=== PATIENT | female | born 1930 | race Caucasian/White ===

== ENCOUNTER 2018-02-07 15:03 | Emergency (ER) | payer MEDICARE, BC ==
[2018-02-07 15:42] VITALS: RESP 18
[2018-02-07 16:11] LABS: Basophils % (A) 1 %; Eosinophils # (A) 0.1 k/uL (0-0.7); Eosinophils % (A) 3 %; HCT 36.1 % (34.0-46.0); HGB 12.1 gm/dL (11.4-16.0); Lymphocytes # (A) 0.7 k/uL (1.0-4.8); Lymphocytes % (A) 19 %; MCH 30.3 pg (25.0-35.0); MCHC 33.5 g/dL (31.0-37.0); MCV 90.4 fL (80.0-100.0); Mean Platelet Volume 9.4; Monocytes # (A) 0.2 k/uL (0-1.0); Monocytes % (A) 7 %; Neutrophils # (A) 2.6 k/uL (1.3-7.7); Neutrophils % (A) 69 %; Platelet Count 135 k/uL (150-450); RDW 13.8 % (11.5-15.5); WBC 3.7 k/uL (3.8-10.6)
[2018-02-07 16:21] LABS: Albumin 3.4 g/dL (3.5-5.0); Total Bilirubin 0.5 mg/dL (0.2-1.3); Total Protein 5.9 g/dL (6.3-8.2)
--- NOTE | 2018-02-07 16:27 | XR ---
EXAMINATION TYPE: XR KUB DATE OF EXAM: 02/07/2018 4:13 PM CLINICAL HISTORY: Abdominal pain TECHNIQUE: Single supine KUB image of the abdomen is obtained. COMPARISON: 11/03/2015. FINDINGS: Scattered gas is seen in non-distended small bowel loops. Gas and fecal material is seen in non-distended colon. Moderate amount retained colonic stool is noted. Atherosclerosis is seen of the abdominal aorta and its branches. There is no visceromegaly, pneumoperitoneum, or abnormal calcifica tion appreciated. Trace pleural effusions are seen at the lung bases. Overlying soft tissue density i s seen in the mid abdomen partially securing visualization. There is generalized osseous demineraliza tion, dextroscoliotic curvature of the lumbar spine, extensive degenerative changes of the visualized spine, and right hemipelvic benign-appearing similar calcifications to exam of 11/03/2015. IMPRESSION: Moderate amount retained colonic stool in an overall nonobstructive bowel gas pattern.
--- NOTE | 2018-02-07 17:56 | ED ---
Abdominal Pain HPI - General Chief Complaint: Abdominal Pain Stated Complaint: bowel obstruction Time Seen by Provider: 02/07/18 17:39 Source: patient, family, RN notes reviewed, old records reviewed Mode of arrival: wheelchair Limitations: no limitations - History of Present Illness Initial Comments: 87-year-old female presents emergency Department with a chief complaint of lower abdominal pain for the past few weeks. She reports that she has the pain over the suprapubic region radiating to the right and left lower quadrants. Patient states that she has had no fever or chills. She reports that she's been having difficulty with bowel movements. She did have a small bowel movement yesterday. Patient states that she's been taking some MiraLAX for the past few days to help her have bowel movements. No fevers or chills. No nausea or vomiting. She reports that she has chronic back pain related to multiple falls. No recent falls. Patient states she has no other symptoms at this time.Patient denies any recent fever, chills, shortness of breath, chest pain, back pain, nausea vomiting, numbness or tingling, dysuria or hematuria, diarrhea, headaches or visual changes, or any other current symptoms - Related Data Home Medications Medication Instructions Recorded Confirmed Ergocalciferol [Vitamin D2 50,000 unit PO FR 11/03/15 02/07/18 (DRISDOL)] Levothyroxine Sodium [Synthroid] 88 mcg PO DAILY 11/03/15 02/07/18 HYDROcodone/APAP 5-325MG [[place] 1 tab PO Q6HR PRN 02/07/18 02/07/18 5-325] Ibuprofen [Advil] 400 mg PO HS 02/07/18 02/07/18 Previous Rx's Medication Instructions Recorded Bisacodyl [Dulcolax] 5 mg PO DAILY #20 tablet.dr 02/07/18 Nitrofurantoin Monohyd/M-Cryst 100 mg PO Q12HR #14 cap 02/07/18 [Macrobid] Allergies Allergy/AdvReac Type Severity Reaction Status Date / Time Penicillins Allergy Unknown Verified 02/07/18 18:15 Review of Systems ROS Statement: Those systems with pertinent positive or pertinent negative responses have been documented in the HPI. ROS Other: All systems not noted in ROS Statement are negative. Past Medical History Past Medical History: Hypertension, Memory Impairment, Osteoarthritis (OA), Thyroid Disorder Additional Past Medical History / Comment(s): CONSTIPATION History of Any Multi-Drug Resistant Organisms: None Reported Past Surgical History: Breast Surgery Additional Past Surgical History / Comment(s): LUMPECTOMY 30 YEARS AGO, sinus surgery Past Anesthesia/Blood Transfusion Reactions: No Reported Reaction Past Psychological History: Anxiety Smoking Status: Former smoker Past Alcohol Use History: None Reported Past Drug Use History: None Reported - Past Family History Brother(s) Family Medical History: Cancer Father Family Medical History: Myocardial Infarction ([place]) Mother Family Medical History: Myocardial Infarction ([place]) Sister(s) Family Medical History: CVA/TIA, Myocardial Infarction ([place]) General Exam - General Exam Comments Initial Comments: 87-year-old female. Alert. No acute distress. She does appear somewhat thin and frail. Limitations: no limitations General appearance: alert, in no apparent distress Head exam: Present: atraumatic, normocephalic, normal inspection Eye exam: Present: normal appearance, PERRL, EOMI. Absent: scleral icterus, conjunctival injection, periorbital swelling ENT exam: Present: normal exam, mucous membranes moist Neck exam: Present: normal inspection. Absent: tenderness, meningismus, lymphadenopathy Respiratory exam: Present: normal lung sounds bilaterally. Absent: respiratory distress, wheezes, rales, rhonchi, stridor Cardiovascular Exam: Present: regular rate, normal rhythm, normal heart sounds. Absent: systolic murmur, diastolic murmur, rubs, gallop, clicks GI/Abdominal exam: Present: soft, normal bowel sounds. Absent: distended, tenderness, guarding, rebound, rigid Extremities exam: Present: normal inspection, full ROM, normal capillary refill. Absent: tenderness, pedal edema, joint swelling, calf tenderness Back exam: Present: normal inspection Neurological exam: Present: alert, oriented X3, CN II-XII intact Psychiatric exam: Present: normal affect, normal mood Course Vital Signs 02/07/18 15:38 Temperature 98.1 F Pulse Rate 103 H Respiratory 18 Rate Blood Pressure 174/88 O2 Sat by Pulse 99 Oximetry - Reevaluation(s) Reevaluation #1: 02/07/18 20:16 Patient is reevaluated after enema. She does have some relief. She denies as of suprapubic tenderness. Currently pending UA. Medical Decision Making - Medical Decision Making This patient's [id number] female presents with multiple weeks of lower back abdominal pain. She is not had good stools. X-rays show moderate amount of retained colonic stool and overall nonobjective bowel gas pattern. No vomiting. Patient's labwork was reviewed and unremarkable this time. Stable hemoglobin. White blood cell count was 3.7 on the lower side. She's had low white blood cell counts throughout her past history. Chemistry panels are normal. Currently pending urinalysis. We'll give patient a fair back enema and magnesium citrate. Patient urinalysis is very thick. The lab was unable to run a sample. We will do a urine culture. The superficial tenderness up the patient on Macrobid. Pending urine culture. Discussed that she also needs take daily stool softeners. We'll prescribe her for this as well. Patient agrees. All questions answered her primary's were discussed. Follow-up with PCP. - Lab Data Result diagrams: 02/07/18 16:00 02/07/18 16:00 Lab Results 02/07/18 02/07/18 Range/Units 16:00 16:00 WBC 3.7 L (3.8-10.6) k/uL RBC 4.00 (3.80-5.40) m/uL Hgb 12.1 (11.4-16.0) gm/dL Hct 36.1 (34.0-46.0) % MCV 90.4 (80.0-100.0) fL MCH 30.3 (25.0-35.0) pg MCHC 33.5 (31.0-37.0) g/dL RDW 13.8 (11.5-15.5) % Plt Count 135 L (150-450) k/uL Neutrophils % 69 % Lymphocytes % 19 % Monocytes % 7 % Eosinophils % 3 % Basophils % 1 % Neutrophils # 2.6 (1.3-7.7) k/uL Lymphocytes # 0.7 L (1.0-4.8) k/uL Monocytes # 0.2 (0-1.0) k/uL Eosinophils # 0.1 (0-0.7) k/uL Basophils # 0.0 (0-0.2) k/uL Sodium 142 (137-145) mmol/L Potassium 4.0 (3.5-5.1) mmol/L Chloride 106 (98-107) mmol/L Carbon Dioxide 26 (22-30) mmol/L Anion Gap 10 mmol/L BUN 19 H (7-17) mg/dL Creatinine 0.79 (0.52-1.04) mg/dL Est GFR (CKD-EPI)AfAm 77 (>60 ml/min/1.73 sqM) Est GFR (CKD-EPI)NonAf 67 (>60 ml/min/1.73 sqM) Glucose 125 H (74-99) mg/dL Calcium 9.0 (8.4-10.2) mg/dL Total Bilirubin 0.5 (0.2-1.3) mg/dL AST 15 (14-36) U/L ALT 8 L (9-52) U/L Alkaline Phosphatase 70 (38-126) U/L Total Protein 5.9 L (6.3-8.2) g/dL Albumin 3.4 L (3.5-5.0) g/dL Amylase 39 (30-110) U/L Lipase 39 (23-300) U/L - Radiology Data Radiology results: report reviewed KUB shows moderate amount of retained colonic stool and overall nonobstructive bowel gas pattern. Disposition Clinical Impression: UTI (urinary tract infection), Constipation Disposition: HOME SELF-CARE Condition: Good Instructions: Constipation (ED), Urinary Tract Infection in Women (ED) Additional Instructions: is to increase her fluid intake. Patient should take antibiotics as prescribed. Use daily stool softener. Return to emergency department if any alarming signs or symptoms occur. Prescriptions: Bisacodyl [Dulcolax] 5 mg PO DAILY #20 tablet. Nitrofurantoin Monohyd/M-Cryst [Macrobid] 100 mg PO Q12HR #14 cap Is patient prescribed a controlled substance at d/c from ED?: No If prescribed controlled substance>3 days was MAPS reviewed?: No When asked, does pt state using other controlled substances?: No Referrals: Cate Miner MD [Primary Care Provider] - 1-2 days Time of Disposition: 20:18
[2018-02-07] MEDS ORDERED: NITROFURANTOIN MONOHYD/M-CRYST 100 MG CAP PO STA (20:19)
[2018-02-07 20:55] VITALS: BP 173/103; PULSE 104; TEMP 97
== END 2018-02-07 20:55 | disposition home or self-care (01) ==
LOC: EC 15:03
DX: N39.0 Urinary tract infection, site not specified (principal); K59.00 Constipation, unspecified; E07.9 Disorder of thyroid, unspecified; M19.90 Unspecified osteoarthritis, unspecified site; Z87.891 Personal history of nicotine dependence; Z79.1 Long term (current) use of non-steroidal anti-inflammatories (NSAID); Z79.899 Other long term (current) drug therapy; Z88.0 Allergy status to penicillin
CPT/HCPCS: 36415; 74018; 80053; 82150; 83690; 85025; 87077; 87086; 87186; 99284

== ENCOUNTER 2018-03-02 08:12 | Inpatient (IN) | payer MEDICARE, BC ==
--- NOTE | 2018-03-02 08:42 | ED ---
Fall HPI - General Chief Complaint: Fall Stated Complaint: Fall Time Seen by Provider: 03/02/18 08:20 Source: patient, family, EMS, RN notes reviewed Mode of arrival: EMS Limitations: altered mental status, physical limitation - History of Present Illness Initial Comments: This an 87-year-old female presents emergency department via EMS chief complaint of fall. Patient to falls this morning. Patient has multiple complaints from his falls. She primarily complains of left hip, left leg pain. She also complains of right tib-fib pain, neck discomfort. Patient reported to EMS that she did not have any neck pain. Patient denies any paresthesias. Denies any chest pain, shortness breath, nausea vomiting diarrhea constipation. These were mechanical falls service no syncopal episodes. Patient hadn't no prior surgery on her left hip but she states that she had a fracture of her femur in which she was casted for. - Related Data Home Medications Medication Instructions Recorded Confirmed Ergocalciferol [Vitamin D2 50,000 unit PO FR 11/03/15 03/02/18 (AMBAR)] Levothyroxine Sodium [Synthroid] 88 mcg PO DAILY 11/03/15 03/02/18 HYDROcodone/APAP 5-325MG [[place] 1 tab PO Q6HR PRN 02/07/18 03/02/18 5-325] Ibuprofen [Advil] 400 mg PO HS 02/07/18 03/02/18 Previous Rx's Medication Instructions Recorded Bisacodyl [Dulcolax] 5 mg PO DAILY #20 tablet. 02/07/18 Allergies Allergy/AdvReac Type Severity Reaction Status Date / Time Penicillins Allergy Unknown Verified 03/02/18 08:53 Sulfa (Sulfonamide Allergy Unknown Verified 03/02/18 08:55 Antibiotics) Review of Systems ROS Statement: Those systems with pertinent positive or pertinent negative responses have been documented in the HPI. ROS Other: All systems not noted in ROS Statement are negative. Past Medical History Past Medical History: Dementia, Hypertension, Memory Impairment, Osteoarthritis (OA), Thyroid Disorder Additional Past Medical History / Comment(s): CONSTIPATION; hip fracture 15 years ago per son History of Any Multi-Drug Resistant Organisms: None Reported Past Surgical History: Breast Surgery Additional Past Surgical History / Comment(s): LUMPECTOMY 30 YEARS AGO, sinus surgery Past Anesthesia/Blood Transfusion Reactions: No Reported Reaction Past Psychological History: Anxiety Smoking Status: Former smoker Past Alcohol Use History: None Reported Past Drug Use History: None Reported - Past Family History Brother(s) Family Medical History: Cancer Father Family Medical History: Myocardial Infarction ([place]) Mother Family Medical History: Myocardial Infarction ([place]) Sister(s) Family Medical History: CVA/TIA, Myocardial Infarction ([place]) General Exam Limitations: altered mental status, physical limitation General appearance: alert, in no apparent distress Head exam: Present: atraumatic, normocephalic, normal inspection Eye exam: Present: normal appearance, PERRL, EOMI. Absent: scleral icterus, conjunctival injection, periorbital swelling Neck exam: Present: normal inspection, tenderness (Mild paraspinal there is no step-off deformity no vertebral tenderness), full ROM. Absent: meningismus, lymphadenopathy Respiratory exam: Present: normal lung sounds bilaterally. Absent: respiratory distress, wheezes, rales, rhonchi, stridor Cardiovascular Exam: Present: regular rate, normal rhythm, normal heart sounds. Absent: systolic murmur, diastolic murmur, rubs, gallop, clicks Extremities exam: Present: other (Tenderness with palpation to left hip, left femur region there is some internal rotation and shortening noted there is tenderness the right tib-fib lower extremities neurovascularly intact) Back exam: Present: full ROM. Absent: tenderness Neurological exam: Present: alert, CN II-XII intact, reflexes normal. Absent: oriented X3 (Patient has a history dementia), motor sensory deficit Skin exam: Present: warm, dry, intact, normal color. Absent: rash Course Vital Signs 03/02/18 08:15 Temperature 98.1 F Pulse Rate 83 Respiratory 22 Rate Blood Pressure 186/89 O2 Sat by Pulse 94 L Oximetry Disposition Clinical Impression: Fall, Closed left hip fracture Disposition: ADMITTED IP TO THIS HOSP Condition: Stable Referrals: Cate Miner MD [Primary Care Provider] - 1-2 days
--- NOTE | 2018-03-02 09:12 | CT ---
EXAMINATION TYPE: CT brain joseph pickering con DATE OF EXAM: 03/02/2018 COMPARISON: NONE HISTORY: Fall * [address] DLP: [address] of the brain was performed. The ventricles, basal cisterns and sulci overlying the cerebral convexities demonstrate moderate enla rgement. There is no evidence for intracranial hemorrhage or sulcal effacement. There is decreased attenuatio n about the periventricular white matter and deep white matter of both cerebral hemispheres, compatib le with chronic small vessel ischemia. No mass effects are seen. If symptoms persist consider MRI. Osseous calvarium is intact. IMPRESSION: 1. Age related atrophic and chronic small vessel ischemic change without acute intracranial process seen at this time. CT Cervical Spine: Unenhanced CT of the cervical spine was performed with bone and soft tissue window settings submitted . Coronal and sagittal reconstruction is obtained. There is normal alignment and prevertebral soft tissues. No evidence for acute cervical fracture . Scattered degenerative disc disease and spondylosis. Biapical scarring. Moderate bilateral pleural effusions are noted extending of the lung apices. IMPRESSION: 1. No evidence for acute fracture or subluxation of the cervical spine.
[2018-03-02] MEDS ORDERED: ONDANSETRON 4 MG/2 ML VIAL IVP STA (09:18)
[2018-03-02] MEDS ORDERED: NALOXONE 0.4 MG/ML 1 ML VIAL IV PRN ×2 (10:51→17:21)
[2018-03-02] MEDS ORDERED: ONDANSETRON 4 MG/2 ML VIAL IVP PRN (10:51)
[2018-03-02] MEDS ORDERED: MORPHINE SULFATE 2 MG/ML SYRINGE IV PRN (10:51)
[2018-03-02] MEDS ORDERED: HYDROcodone/APAP 5-325MG 1 EACH TAB PO PRN ×2 (10:51→16:50)
--- NOTE | 2018-03-02 10:52 | XR ---
EXAMINATION TYPE: XR chest 1V DATE OF EXAM: 03/02/2018 COMPARISON: 11/07/2015 INDICATION: Pain TECHNIQUE: Single frontal view of the chest is obtained. Patient is rotated to the right FINDINGS: The heart size is normal. The pulmonary vasculature is normal. Small bilateral pleural fluid collections are present. IMPRESSION: 1. Bilateral fluid collections.
--- NOTE | 2018-03-02 10:55 | XR ---
EXAMINATION TYPE: XR femur LT DATE OF EXAM: 03/02/2018 COMPARISON: None HISTORY: Pain TECHNIQUE: Two-view distal left femur FINDINGS: Structures are osteoporotic. There is degenerative joint changes at the knee. No displaced fractures are evident within the [id number]. The proximal portion of the femur is out of the field -of-view. This is evaluated separately on the hip images. Please see left hip images same date. IMPRESSION: 1. Distal femur appears intact. No additional fractures are evident.
--- NOTE | 2018-03-02 10:56 | XR ---
EXAMINATION TYPE: XR Hip LT and AP Pelvis DATE OF EXAM: 03/02/2018 COMPARISON: NONE HISTORY: Pain TECHNIQUE: AP pelvis and 2 views left hip FINDINGS: There is a distal femoral neck fracture within the left hip. There is angulation of the fra cture fragments. The femoral head articulates with the acetabulum. Proximal femoral fracture is not o therwise identified. IMPRESSION: 1. Distal left femoral neck fracture with angulation of the fracture fragments.
--- NOTE | 2018-03-02 11:00 | XR ---
EXAMINATION TYPE: XR tibia fibula RT DATE OF EXAM: 03/02/2018 COMPARISON: NONE HISTORY: Pain TECHNIQUE: 2 views right tibia and fibula FINDINGS: Degenerative joint changes appear moderately advanced at the knee. Structures appear osteop enic. Degenerative changes are at the ankle. An acute fracture within the [id number] is not identi fied. IMPRESSION: 1. No acute osseous abnormality right tibia and fibula. 2. Degenerative changes especially at the knee. 3. See left hip dictation same date.
[2018-03-02] MEDS ORDERED: METOCLOPRAMIDE 5 MG/ML 2 ML VIAL IVP STA (11:40)
[2018-03-02] MEDS: DIAZEPAM 5 MG/ML 2 ML INJ IVP STA ×2 (12:12→12:25)
--- NOTE | 2018-03-02 12:24 | XR ---
EXAMINATION TYPE: XR Hip Limited LT DATE OF EXAM: 03/02/2018 COMPARISON: NONE HISTORY: Post reduction TECHNIQUE: Single AP view left hip FINDINGS: There is a distal femoral neck fracture. There is partial reduction of the fracture now wit h close orientation of the femoral neck in relation to the femur. This is improved from comparison. IMPRESSION: 1. Partial reduction of the left femoral neck fracture.
--- NOTE | 2018-03-02 12:43 | P.HPOR ---
History of Present Illness H&P Date: 03/02/18 Chief Complaint: left hip fracture this is an 87-year-old female admitted to [facility] on 2017 after falling and sustaining injury to her left hip. Patient has history of dementia and lives with her son. She reportedly was getting up to use the bathroom and fell. On exam and x-ray in the emergency department she is found to have a low basilar neck fracture of the left hip.she is admitted to our service for surgical intervention and care. Past Medical History Past Medical History: Dementia, Hypertension, Memory Impairment, Osteoarthritis (OA), Thyroid Disorder Additional Past Medical History / Comment(s): CONSTIPATION; hip fracture 15 years ago per son History of Any Multi-Drug Resistant Organisms: None Reported Past Surgical History: Breast Surgery Additional Past Surgical History / Comment(s): LUMPECTOMY 30 YEARS AGO, sinus surgery Past Anesthesia/Blood Transfusion Reactions: No Reported Reaction Past Psychological History: Anxiety Smoking Status: Former smoker Past Alcohol Use History: None Reported Past Drug Use History: None Reported - Past Family History Brother(s) Family Medical History: Cancer Father Family Medical History: Myocardial Infarction ([place]) Mother Family Medical History: Myocardial Infarction ([place]) Sister(s) Family Medical History: CVA/TIA, Myocardial Infarction ([place]) Medications and Allergies Home Medications Medication Instructions Recorded Confirmed Type Ergocalciferol [Vitamin D2 50,000 unit PO FR 11/03/15 03/02/18 History (DRISDOL)] Levothyroxine Sodium [Synthroid] 88 mcg PO DAILY 11/03/15 03/02/18 History Bisacodyl [Dulcolax] 5 mg PO DAILY #20 tablet.dr 02/07/18 03/02/18 Rx HYDROcodone/APAP 5-325MG [[place] 1 tab PO Q6HR PRN 02/07/18 03/02/18 History 5-325] Ibuprofen [Advil] 400 mg PO HS 02/07/18 03/02/18 History Allergies Allergy/AdvReac Type Severity Reaction Status Date / Time Penicillins Allergy Unknown Verified 03/02/18 08:53 Sulfa (Sulfonamide Allergy Unknown Verified 03/02/18 08:55 Antibiotics) Physical Examination This is a and 87-year-old female with dementiain no acute distress. She is alert but confused. Exam of the lower extremities reveals shortening and abrasions to internal rotation of the left hip. After the patient is medicated I am unable to get her left leg out to length. She is able to wiggle toes. Pedal pulses +1/4. She does have +1 pitting edema to the lower legs. The remainder of her musculoskeletal exam is unremarkable. Results x-rays of the pelvis and left hip reveal a low basilar neck fracture with possible greater trochanteric involvement. Assessment and Plan (1) Dementia Current Visit: Yes Status: Acute Code(s): F03.90 - UNSPECIFIED DEMENTIA WITHOUT BEHAVIORAL DISTURBANCE SNOMED Code(s): 22448777 (2) Closed left hip fracture Current Visit: Yes Status: Acute Code(s): S72.002A - FRACTURE OF UNSP PART OF NECK OF LEFT FEMUR, INIT SNOMED Code(s): 004027253 (3) Fall Current Visit: Yes Status: Acute Code(s): W19.XXXA - UNSPECIFIED FALL, INITIAL ENCOUNTER SNOMED Code(s): 7604984 Plan: The clinical and x-ray findings are discussed the patient and nursing staff. She is placed in 10 pounds of [place] traction for the purpose of obtaining a better x-ray. We will keep her in Faith's traction until surgery. It is recommended she undergo closed reduction with insertion of intertrochanteric nail left hip. We are planning or for today if she is cleared medically.
[2018-03-02] MEDS ORDERED: QUEtiapine 25 MG TAB PO PRN (13:08)
[2018-03-02 13:19] LABS: Basophils % (A) 0 %; Eosinophils % (A) 0 %; HCT 32.4 % (34.0-46.0); HGB 10.6 gm/dL (11.4-16.0); Lymphocytes # (A) 0.4 k/uL (1.0-4.8); Lymphocytes % (A) 6 %; MCH 30.3 pg (25.0-35.0); MCHC 32.5 g/dL (31.0-37.0); MCV 93.2 fL (80.0-100.0); Mean Platelet Volume 9.4; Monocytes # (A) 0.3 k/uL (0-1.0); Monocytes % (A) 5 %; Neutrophils # (A) 6.1 k/uL (1.3-7.7); Neutrophils % (A) 88 %; Platelet Count 156 k/uL (150-450); RBC 3.48 m/uL (3.80-5.40); RDW 14.1 % (11.5-15.5); WBC 6.9 k/uL (3.8-10.6)
[2018-03-02 13:21] LABS: Appearance,Urine Cloudy (Clear); Bilirubin,Urine Negative (Negative); Blood,Urine Small (Negative); Color,Urine Yellow; Glucose,Urine (UA) Negative (Negative); Ketones,Urine 1+ (Negative); Leukocyte Esterase,Urine Large (Negative); Nitrite,Urine Negative (Negative); Protein,Urine 1+ (Negative); RBC,Urine 18 /hpf (0-5); Squamous Epithelial Cell,Urine 4 /hpf (0-4); Urobilinogen,Urine <2.0 mg/dL (<2.0); WBC,Urine 133 /hpf (0-5)
[2018-03-02 13:38] LABS: ALT 25 U/L (9-52); AST 19 U/L (14-36); Albumin 3.2 g/dL (3.5-5.0); Alkaline Phosphatase 59 U/L (38-126); Anion Gap 10 mmol/L; Blood Urea Nitrogen 19 mg/dL (7-17); Calcium 8.5 mg/dL (8.4-10.2); Carbon Dioxide 24 mmol/L (22-30); Chloride 108 mmol/L (98-107); Glucose 134 mg/dL (74-99); Potassium 3.9 mmol/L (3.5-5.1); Sodium 142 mmol/L (137-145); Total Bilirubin 0.5 mg/dL (0.2-1.3); Total Protein 5.5 g/dL (6.3-8.2)
[2018-03-02 13:43] LABS: INR 1.1 (<1.2); Prothrombin Time 11.1 sec (9.0-12.0)
[2018-03-02 13:56] LABS: Partial Thromboplastin Time 21.4 sec (22.0-30.0)
[2018-03-02] MEDS ORDERED: LACTATED RINGERS 1,000 ML IV ONE (14:45)
[2018-03-02] MEDS ORDERED: PHENYLEPHRINE-0.9% NACL SYG 1 MG/10 ML SYRINGE ONE (15:00)
[2018-03-02] MEDS ORDERED: KETAMINE 10 MG/ML 20 ML VIAL ONE (15:00)
[2018-03-02] MEDS ORDERED: MIDAZOLAM 2 MG/2 ML VIAL ONE (15:00)
[2018-03-02] MEDS ORDERED: SODIUM CHLORIDE 0.9% 50 ML with ceFAZolin 1,000 MG IV ONE ×2 (15:42)
[2018-03-02] MEDS ORDERED: CLINDAMYCIN 600 MG in SODIUM CHLORIDE 0.9% 1,000 ML IRRIGATION ONE (16:13)
--- NOTE | 2018-03-02 17:02 | P.OP ---
Date of Procedure: 03/02/18 Procedure(s) Performed: PREOPERATIVE DIAGNOSIS: Left hip intertrochanteric/basicervical femoral neck fracture. POSTOPERATIVE DIAGNOSIS: Left hip intertrochanteric/basicervical femoral neck fracture. OPERATION: Left hip intertrochanteric fracture closed reduction and intramedullary nailing using Synthes IT nail. MULTIMEDIA INSTRUCTIONAL DESIGNER: None ANESTHESIA: Spinal ESTIMATED BLOOD LOSS: 50 mL. COMPLICATIONS: None OPERATIVE FINDINGS: See dictation INDICATIONS: Josefina is an 87-year-old frail female with a history of left intertrochanteric/easy cervical femoral neck fracture. The patient presents to the operating room today for closed reduction and intramedullary nailing. I discussed the risks of surgery in detail as being inclusive of but not limited to: Bleeding, infection, scarring, discomfort, blood vessel and/or nerve damage , need for further surgery, malunion, nonunion, gait disturbance including persistent or permanent limp, limb length inequality, arthritis, hardware failure, blood clot, pulmonary embolism, , and other risks. The consent form has been signed. PROCEDURE: After appropriate consent was obtained, the patient was taken to the operating room and placed in supine position. [Spinal] anesthetic was administered and after confirmation of adequate anesthesia, the patient was carefully placed in the supine position on the operating room table in the fracture table. The patient was placed up against a well-padded peroneal post. Care was taken to make sure about that all pressure points were adequately padded. The affected leg was placed in boot traction and the unaffected leg was placed in a well leg rayo. Using gentle longitudinal distraction as well as adduction and internal rotation, the fracture was reduced as assessed by AP and lateral C-arm imaging. Once a satisfactory reduction had been obtained, the thigh was prepped and draped in the usual aseptic fashion using ChloraPrep. Ioban drape was used for the case and the patient received intravenous antibiotics prior to incision. Timeout was called, confirming patient identity, side, procedure, and administration of antibiotics. The incision was then created with a #10 blade just proximal to the greater trochanter laterally. It was carried down through skin into the subcutaneous tissues and through fascia. Hemostasis was obtained using electrocautery. The tip of the greater trochanter was palpated and a guide pin was placed at the tip and directed into the femoral shaft as assessed with C-arm imaging. Once optimal pin position had been obtained, a 17 mm reamer was used over the guide pin to create a path for the IT nail. IT nail selected was assembled to the insertion jig on the back table and bushings were checked for accuracy. The nail was then inserted using gentle mallet taps until it was fully deployed. The amount of rotation of the implant was assessed based on the amount of anteversion of the femoral neck. This was rotated to match the patient's femoral neck anteversion and the helical blade guide was placed through the insertion jig and through an incision on the lateral side of the thigh more distal than the first. Once this guide was placed against the lateral cortex of the femur, a guide pin was drilled into the central region of the femoral head and neck as based on AP and lateral C-arm imaging. Once optimal pin position had been obtained, the guidewire was measured and appropriately sized helical blade was selected. The path for the helical blade was prepared using a tapered reamer. The helical blade was then inserted using gentle mallet taps along the guidewire until it was fully deployed. There was no displacement of the fracture during this step. The anti-rotation screw was locked down and the insertion apparatus for the helical blade was removed. The guide pin was then removed. Traction was then removed from the leg and the distal interlock was placed through the jig using standard technique. Finally, the insertion jig for the nail was removed and final C-arm images were taken and saved in both AP and lateral planes. The final x-rays showed satisfactory positioning of the implant and good reduction of the fracture. The top of the nail was plugged with a small quantity of bone wax and the incisions were then thoroughly irrigated with normal saline. Final hemostasis was obtained using electrocautery and closure of the fascia was performed using 0-Vicryl suture. 2-0 Vicryl suture was used in the subcutaneous tissues and sher were used for the skin. Sterile dressing was then applied and the patient was carefully removed from the fracture table frame and placed onto the stretcher. The patient tolerated the procedure well. There were no complications and less than 50 cc of blood loss. The patient was then subsequently transferred to recovery room in stable condition. Sponge and needle counts were correct.
[2018-03-02] MEDS ORDERED: HYDROmorphone 0.5 MG/0.5 ML SYRINGE IVP PRN ×4 (17:21→17:25)
[2018-03-02] MEDS ORDERED: MAGNESIUM HYDROXIDE 2,400 MG/10 ML CUP PO PRN (17:21)
--- NOTE | 2018-03-02 17:34 | P.CONS ---
History of Present Illness - Reason for Consult Preoperative clearance - History of Present Illness 87-year-old female admitted after a mechanical fall and fracture of the left hip. I was consulted for preoperative clearance. Patient appears to have moderate dementia etiology of dementia is probably senile or vascular. Patient functionality is poor and less than 4 mets. Patient is dependent and on ADLs and IADLs. Patient was getting up from the bed fell and sustained a fracture I do not have an EKG available which was ordered patient denied any chest pain fever chills shortness of breath. Patient denied any previous history of coronary disease myocardial infarction in the past does not have any history of congestive heart failure no murmur and cardiac exam. Doesn't smoke thin built female. Discussed regarding this and benefits of surgery as a surgery improves her functionality significantly even though she is moderate risk for surgery at recommended that patient should go for surgery. Avoid opiate analgesia about benzos. Barbiturates anticollagen medications during hospitalization and can use as needed antipsychotic medications for agitation episodes which are expected during this hospitalization. Discontinued all opiates for pain. Review of Systems REVIEW OF SYSTEMS: CONSTITUTIONAL: No fever, no malaise, no fatigue. HEENT: No recent visual problems or hearing problems. Denied any sore throat. CARDIOVASCULAR: No chest pain, orthopnea, PND, no palpitations, no syncope. PULMONARY: No shortness of breath, no cough, no hemoptysis. GASTROINTESTINAL: No diarrhea, no nausea, no vomiting, no abdominal pain. Normoactive bowel sounds. NEUROLOGICAL: No headaches, no weakness, no numbness. HEMATOLOGICAL: Denies any bleeding or petechiae. GENITOURINARY: Denies any burning micturition, frequency, or urgency. MUSCULOSKELETAL/RHEUMATOLOGICAL: Denies any joint pain, swelling, or any muscle pain. ENDOCRINE: Denies any polyuria or polydipsia. Although patient is poor historian The rest of the 14-point review of systems is negative. Past Medical History Past Medical History: Dementia, Hypertension, Memory Impairment, Osteoarthritis (OA), Thyroid Disorder Additional Past Medical History / Comment(s): Memory impairment, athritis multiple joints, past L lower leg fracture with casting, hypothyroid, chronic constipation, UTIs, gait dysfunction, falls, protein calorie malnutrition, bilateral retinal bleeds-limited vision. History of Any Multi-Drug Resistant Organisms: None Reported Past Surgical History: Breast Surgery Additional Past Surgical History / Comment(s): Benign breast lumpectomy ( laterality unknown), sinus surgery, bilateral cataract removals/lens implants. Past Anesthesia/Blood Transfusion Reactions: No Reported Reaction Smoking Status: Former smoker - Past Family History Brother(s) Family Medical History: Cancer Father Family Medical History: Myocardial Infarction ([place]) Mother Family Medical History: Myocardial Infarction ([place]) Sister(s) Family Medical History: CVA/TIA, Myocardial Infarction ([place]) Medications and Allergies Home Medications Medication Instructions Recorded Confirmed Type Ergocalciferol [Vitamin D2 50,000 unit PO FR 11/03/15 03/02/18 History (DRISDOL)] Levothyroxine Sodium [Synthroid] 88 mcg PO DAILY 11/03/15 03/02/18 History Bisacodyl [Dulcolax] 5 mg PO DAILY #20 tablet.dr 02/07/18 03/02/18 Rx HYDROcodone/APAP 5-325MG [Manderson 1 tab PO Q6HR PRN 02/07/18 03/02/18 History 5-325] Ibuprofen [Advil] 400 mg PO HS 02/07/18 03/02/18 History Allergies Allergy/AdvReac Type Severity Reaction Status Date / Time Penicillins Allergy Unknown Verified 03/02/18 08:53 Sulfa (Sulfonamide Allergy Unknown Verified 03/02/18 08:55 Antibiotics) Physical Exam Vitals: Vital Signs Temp Pulse Pulse Pulse Resp BP BP 03/02/18 17:27 96 16 134/63 03/02/18 17:12 104 H 18 135/63 03/02/18 16:57 87 16 138/69 03/02/18 16:42 92 16 138/59 03/02/18 16:26 97.3 F L 102 H 16 131/75 03/02/18 14:49 96.9 F L 98 16 169/87 03/02/18 14:13 110 H 03/02/18 13:34 110 H 16 149/88 03/02/18 13:14 93 16 173/74 03/02/18 13:01 96 16 178/84 03/02/18 12:42 90 16 167/78 03/02/18 12:27 95 16 129/69 03/02/18 12:23 77 16 116/62 03/02/18 12:17 86 14 204/72 03/02/18 08:15 98.1 F 83 22 186/89 Pulse Ox 03/02/18 17:27 98 03/02/18 17:12 92 L 03/02/18 16:57 92 L 03/02/18 16:42 96 03/02/18 16:26 95 03/02/18 14:49 85 L 03/02/18 14:13 03/02/18 13:34 95 03/02/18 13:14 97 03/02/18 13:01 97 03/02/18 12:42 97 03/02/18 12:27 2 L 03/02/18 12:23 95 03/02/18 12:17 94 L 03/02/18 08:15 94 L Intake and Output 03/02/18 03/02/18 03/02/18 06:59 14:59 22:59 Intake Total 651 Output Total 150 Balance 501 Intake: IV 651 Output: Urine 100 Estimated Blood Loss 50 Other: Voiding Method Indwelling Catheter Weight 47.627 kg PHYSICAL EXAMINATION: GENERAL: The patient is alert and oriented x1-2, not in any acute distress. Thin built cachectic female HEENT: Pupils are round and equally reacting to light. EOMI. No scleral icterus. No conjunctival pallor. Normocephalic, atraumatic. No pharyngeal erythema. No thyromegaly. CARDIOVASCULAR: S1 and S2 present. No murmurs, rubs, or gallops. PULMONARY: Chest is clear to auscultation, no wheezing or crackles. ABDOMEN: Soft, nontender, nondistended, normoactive bowel sounds. No palpable organomegaly. MUSCULOSKELETAL: Deferred to orthopedic surgery EXTREMITIES: No cyanosis, clubbing, or pedal edema. NEUROLOGICAL: Gross neurological examination did not reveal any focal deficits. SKIN: No rashes. Results CBC & Chem 7: 03/02/18 12:35 03/02/18 12:35 Labs: Abnormal Lab Results - Last 24 Hours (Table) 03/02/18 03/02/18 03/02/18 Range/Units 12:35 12:35 12:35 RBC 3.48 L (3.80-5.40) m/uL Hgb 10.6 L (11.4-16.0) gm/dL Hct 32.4 L (34.0-46.0) % Lymphocytes # 0.4 L (1.0-4.8) k/uL APTT (22.0-30.0) sec Chloride 108 H (98-107) mmol/L BUN 19 H (7-17) mg/dL Glucose 134 H (74-99) mg/dL Total Protein 5.5 L (6.3-8.2) g/dL Albumin 3.2 L (3.5-5.0) g/dL Urine Appearance Cloudy H (Clear) Urine Protein 1+ H (Negative) Urine Ketones 1+ H (Negative) Urine Blood Small H (Negative) Ur Leukocyte Esterase Large H (Negative) Urine RBC 18 H (0-5) /hpf Urine WBC 133 H (0-5) /hpf 03/02/18 Range/Units 12:35 RBC (3.80-5.40) m/uL Hgb (11.4-16.0) gm/dL Hct (34.0-46.0) % Lymphocytes # (1.0-4.8) k/uL APTT 21.4 L (22.0-30.0) sec Chloride (98-107) mmol/L BUN (7-17) mg/dL Glucose (74-99) mg/dL Total Protein (6.3-8.2) g/dL Albumin (3.5-5.0) g/dL Urine Appearance (Clear) Urine Protein (Negative) Urine Ketones (Negative) Urine Blood (Negative) Ur Leukocyte Esterase (Negative) Urine RBC (0-5) /hpf Urine WBC (0-5) /hpf Assessment and Plan Plan: -Preoperative clearance, left hip arthroplasty: Patient is moderate risk for surgery and this and benefits were discussed with the family members. Please refer to the dictation as mentioned above. -Hypertension will monitor blood pressure hold off any anti-happens medications -Hypothyroidism continue levothyroxine -Pain management: Recommend to avoid opiates, benzos a pains, barbiturates, anticollagen medications can use Toradol with kidney function monitoring. Patient does use ibuprofen. -DVT prophylaxis: As per primary service
[2018-03-02] MEDS: LACTATED RINGERS 1,000 ML IV SCH (17:57)
[2018-03-02 18:14] LABS: Basophils % (A) 0 %; Eosinophils % (A) 0 %; HCT 31.8 % (34.0-46.0); HGB 10.1 gm/dL (11.4-16.0); Hypochromasia Slight; Lymphocytes # (A) 0.3 k/uL (1.0-4.8); Lymphocytes % (A) 4 %; MCH 30.2 pg (25.0-35.0); MCHC 31.7 g/dL (31.0-37.0); MCV 95.2 fL (80.0-100.0); Mean Platelet Volume 9.9; Monocytes # (A) 0.3 k/uL (0-1.0); Monocytes % (A) 4 %; Neutrophils # (A) 7.1 k/uL (1.3-7.7); Neutrophils % (A) 91 %; Platelet Count 137 k/uL (150-450); RBC 3.35 m/uL (3.80-5.40); RDW 13.9 % (11.5-15.5); WBC 7.9 k/uL (3.8-10.6)
--- NOTE | 2018-03-02 20:25 | XR ---
Fluoroscopy INDICATION: Pain FINDINGS: Fluoroscopy time: 52 seconds. Images obtained: 3. IMPRESSIONS: 1. Documentation of fluoroscopy.
[2018-03-02] MEDS ORDERED: FAMOTIDINE 20 MG TAB PO SCH (21:00)
[2018-03-02] MEDS: SENNOSIDES-DOCUSATE SODIUM 1 EACH TAB PO SCH (22:32)
[2018-03-03] MEDS: ceFAZolin IN SWFI 2 GM/20 ML SYRINGE IVP SCH ×2 (00:23→09:50)
[2018-03-03] MEDS ORDERED: HYDROmorphone 0.5 MG/0.5 ML SYRINGE ONE (04:15)
[2018-03-03] MEDS: KETOROLAC 30 MG/ML 1 ML VIAL IVP PRN ×2 (08:18→14:31)
--- NOTE | 2018-03-03 08:48 | P.PN ---
Subjective Progress Note Date: 03/03/18 Principal diagnosis: IT Fracture Left Hip This is a 87 y/o female POD#1 s/p closed reduction and insertion of IT nail left femur. Pain is well controlled. She has a history of dementia and is confused at baseline. She has no complaints at this time and is in no acute distress. Objective - Vital Signs Vital signs: Vital Signs Temp 98.3 F 03/03/18 08:13 Pulse 104 H 03/03/18 00:09 Resp 12 03/03/18 08:13 BP 120/71 03/03/18 08:13 Pulse Ox 94 L 03/03/18 08:13 Intake & Output 03/02/18 03/03/18 03/03/18 18:59 06:59 18:59 Intake Total 651 1500 Output Total 150 200 Balance 501 1300 Weight 47.627 kg Intake: IV 651 Intake, IV Titration 1300 Amount Lactated Ringers 1,000 ml 1300 @ 100 mls/hr IV .Q10H [facility] Rx#:[id number] Oral 200 Output: Urine 100 200 Estimated Blood Loss 50 Other: Voiding Method Indwelling Catheter Indwelling Catheter - Exam General: Lying in bed comfortably, no acute distress, confused at baseline. Extremities: Surgical dressing on lateral left hip intact, clean, no signs of active bleeding. No calf swelling or discoloration bilaterally. DP and PT pulses +2 bilaterally. Neuro: Patient follows commands and is able to move all four extremities. Sensation intact in all four extremities. - Labs CBC & Chem 7: 03/02/18 17:59 03/02/18 12:35 Labs: Abnormal Lab Results - Last 24 Hours (Table) 03/02/18 03/02/18 03/02/18 Range/Units 12:35 12:35 12:35 RBC 3.48 L (3.80-5.40) m/uL Hgb 10.6 L (11.4-16.0) gm/dL Hct 32.4 L (34.0-46.0) % Plt Count (150-450) k/uL Lymphocytes # 0.4 L (1.0-4.8) k/uL APTT (22.0-30.0) sec Chloride 108 H (98-107) mmol/L BUN 19 H (7-17) mg/dL Glucose 134 H (74-99) mg/dL Total Protein 5.5 L (6.3-8.2) g/dL Albumin 3.2 L (3.5-5.0) g/dL Urine Appearance Cloudy H (Clear) Urine Protein 1+ H (Negative) Urine Ketones 1+ H (Negative) Urine Blood Small H (Negative) Ur Leukocyte Esterase Large H (Negative) Urine RBC 18 H (0-5) /hpf Urine WBC 133 H (0-5) /hpf 03/02/18 03/02/18 Range/Units 12:35 17:59 RBC 3.35 L (3.80-5.40) m/uL Hgb 10.1 L (11.4-16.0) gm/dL Hct 31.8 L (34.0-46.0) % Plt Count 137 L (150-450) k/uL Lymphocytes # 0.3 L (1.0-4.8) k/uL APTT 21.4 L (22.0-30.0) sec Chloride (98-107) mmol/L BUN (7-17) mg/dL Glucose (74-99) mg/dL Total Protein (6.3-8.2) g/dL Albumin (3.5-5.0) g/dL Urine Appearance (Clear) Urine Protein (Negative) Urine Ketones (Negative) Urine Blood (Negative) Ur Leukocyte Esterase (Negative) Urine RBC (0-5) /hpf Urine WBC (0-5) /hpf Assessment and Plan Assessment: 87 y/o female POD#1 s/p closed reduction IT nail insertion left hip IT fracture. Closed left hip IT fracture Acute left hip pain Dementia Hypertension Hypothyroidism (1) Dementia Current Visit: Yes Status: Chronic Code(s): F03.90 - UNSPECIFIED DEMENTIA WITHOUT BEHAVIORAL DISTURBANCE SNOMED Code(s): 34728555 (2) Closed left hip fracture Current Visit: Yes Status: Acute Code(s): S72.002A - FRACTURE OF UNSP PART OF NECK OF LEFT FEMUR, INIT SNOMED Code(s): 572661028 (3) Fall Current Visit: Yes Status: Acute Code(s): W19.XXXA - UNSPECIFIED FALL, INITIAL ENCOUNTER SNOMED Code(s): 4929614 Plan: Continue current pain regimen Monitor for signs of incision bleeding and infection Plan to discharge to inpatient rehab and PT Time with Patient: Less than 30
[2018-03-03 08:50] LABS: Anion Gap 8 mmol/L; Blood Urea Nitrogen 20 mg/dL (7-17); Calcium 8.2 mg/dL (8.4-10.2); Carbon Dioxide 22 mmol/L (22-30); Chloride 111 mmol/L (98-107); Glucose 109 mg/dL (74-99); Potassium 4.1 mmol/L (3.5-5.1); Sodium 141 mmol/L (137-145)
[2018-03-03] MEDS ORDERED: HYDROmorphone 2 MG TAB PO PRN ×2 (09:23)
[2018-03-03] MEDS: FAMOTIDINE 20 MG TAB PO SCH (09:50)
[2018-03-03] MEDS: BISACODYL 5 MG TABLET.DR PO SCH (09:50)
[2018-03-03] MEDS: LEVOTHYROXINE 88 MCG TAB PO SCH (09:50)
[2018-03-03] MEDS: LACTATED RINGERS 1,000 ML IV SCH ×2 (10:33→14:32)
[2018-03-03 11:01] VITALS: BMI 16.9
--- NOTE | 2018-03-03 13:17 | CDI ---
Last Revision, September 2017 Documentation Clarification Form Date: 03/03/2018 12:14:00 PM From: Gabby FontanezWalshNAMRAAT, CCDS Admit Date: 03/02/2018 11:09:00 AM Patient Name: Josefina Hawkins Visit Number: [id number] Discharge Date: ATTENTION: The Clinical Documentation Specialists (CDI) and [facility] Coding Staff appreciate your assistance in clarifying documentation. Please respond to the clarification below the line at the bottom and electronically sign. The CDI & [facility] Coding staff will review the response and follow-up if needed. Please note: Queries are made part of the Legal Health Record. If you have any questions, please contact the author of this message via ITS. Dr. Toby Fisher: Malnutrition has been documented in your 03/02 medical management consultation as "History of... protein calorie malnutrition". History/Risk Factors: Dementia, Hypertension, OA, Osteoarthritis multiple joints. Clinical Indicators: BMI: 16.9 Labs: Total protein 5.5, Albumin 3.2 Nutritional Assessment: 81% of ideal body weight, Underweight likely due to advanced dementia, meeting 75% of daily diet goal, Weak muscle tone, poor muscle strength. Treatment: Closed reduction with IM nailing of left femur fracture, IV Zofran, IV Ms, IV Narcan, IV Zofran, IV Reglan, IV Valium, IV Toradol, IV Lactated Ringers, IV Dilaudid. In your professional opinion, can you please clarify if these findings signify one of the following conditions? Mild Protein-Calorie Malnutrition Moderate Protein-Calorie Malnutrition Severe Protein-Calorie Malnutrition Other condition, please specify Unable to determine Please continue to document in your progress notes and discharge summary in order to capture severity of illness and risk of mortality. Include clinical findings that support your diagnosis. MTDD
--- NOTE | 2018-03-03 14:01 | P.PN ---
Subjective 87-year-old successfully underwent a left hip arthroplasty. Patient is still having pain and tachycardic secondary to that patient was started on opiates as hit her pain is not well controlled. Patient appears to have tolerated those opiates because of which I didn't make any changes today. Patient is comparing of severe pain in the surgical site areas Objective - Vital Signs Vital signs: Vital Signs Temp 98.3 F 03/03/18 08:13 Pulse 103 H 03/03/18 08:15 Resp 14 03/03/18 08:15 BP 120/71 03/03/18 08:13 Pulse Ox 94 L 03/03/18 08:13 Intake & Output 03/02/18 03/03/18 03/03/18 18:59 06:59 18:59 Intake Total 651 1500 700 Output Total 150 200 Balance 501 1300 700 Weight 47.627 kg 47.627 kg Intake: IV 651 Intake, IV Titration 1300 700 Amount Lactated Ringers 1,000 ml 1300 700 @ 100 mls/hr IV .Q10H [facility] Rx#:[id number] Oral 200 Output: Urine 100 200 Estimated Blood Loss 50 Other: Voiding Method Indwelling Catheter Indwelling Catheter Indwelling Catheter - Exam PHYSICAL EXAMINATION: GENERAL: The patient is alert and oriented x1-2, not in any acute distress. Thin built cachectic female HEENT: Pupils are round and equally reacting to light. EOMI. No scleral icterus. No conjunctival pallor. Normocephalic, atraumatic. No pharyngeal erythema. No thyromegaly. CARDIOVASCULAR: S1 and S2 present. No murmurs, rubs, or gallops. PULMONARY: Chest is clear to auscultation, no wheezing or crackles. ABDOMEN: Soft, nontender, nondistended, normoactive bowel sounds. No palpable organomegaly. MUSCULOSKELETAL: Deferred to orthopedic surgery EXTREMITIES: No cyanosis, clubbing, or pedal edema. NEUROLOGICAL: Gross neurological examination did not reveal any focal deficits. SKIN: No rashes. - Labs CBC & Chem 7: 03/02/18 17:59 03/03/18 07:50 Labs: Abnormal Lab Results - Last 24 Hours (Table) 03/02/18 03/02/18 03/03/18 Range/Units 12:35 17:59 07:50 RBC 3.35 L (3.80-5.40) m/uL Hgb 10.1 L (11.4-16.0) gm/dL Hct 31.8 L (34.0-46.0) % Plt Count 137 L (150-450) k/uL Lymphocytes # 0.3 L (1.0-4.8) k/uL APTT 21.4 L (22.0-30.0) sec Chloride 111 H (98-107) mmol/L BUN 20 H (7-17) mg/dL Glucose 109 H (74-99) mg/dL Calcium 8.2 L (8.4-10.2) mg/dL Assessment and Plan Plan: -Status post left hip arthroplasty: DVT prophylaxis per primary service and pain management is being managed by primary service as well. -Hypertension will monitor blood pressure hold off any hypertensive medications -Hypothyroidism continue levothyroxine -Pain management: Recommend to avoid benzos , barbiturates, anticollagen medications can use Toradol with kidney function monitoring. Patient does use ibuprofen. [id number] protein calorie malnutrition -DVT prophylaxis: As per primary service
[2018-03-03] MEDS: hydrOXYzine PAMOATE 25 MG CAP PO PRN (19:46)
[2018-03-03] MEDS: SENNOSIDES-DOCUSATE SODIUM 1 EACH TAB PO SCH (19:47)
[2018-03-03] MEDS: HYDROcodone/APAP 5-325MG 1 EACH TAB PO PRN (19:47)
[2018-03-04] MEDS: LACTATED RINGERS 1,000 ML IV SCH ×3 (07:43→19:33)
[2018-03-04 08:22] LABS: Basophils % (A) 0 %; Eosinophils # (A) 0.1 k/uL (0-0.7); Eosinophils % (A) 2 %; Lymphocytes # (A) 0.5 k/uL (1.0-4.8); Lymphocytes % (A) 10 %; MCH 30.4 pg (25.0-35.0); MCHC 32.2 g/dL (31.0-37.0); MCV 94.5 fL (80.0-100.0); Mean Platelet Volume 9.8; Monocytes # (A) 0.3 k/uL (0-1.0); Monocytes % (A) 6 %; Neutrophils # (A) 4.3 k/uL (1.3-7.7); Neutrophils % (A) 81 %; Platelet Count 111 k/uL (150-450); RBC 2.54 m/uL (3.80-5.40); RDW 14.3 % (11.5-15.5); WBC 5.3 k/uL (3.8-10.6)
[2018-03-04 08:24] LABS: HGB 7.7 gm/dL (11.4-16.0)
--- NOTE | 2018-03-04 08:47 | P.PN ---
Subjective Progress Note Date: 03/04/18 Principal diagnosis: IT Fracture Left Hip This is a 87 y/o female POD#2 s/p closed reduction and insertion of IT nail left femur. Pain is well controlled. She has a history of dementia and is confused at baseline. She has no complaints at this time and is in no acute distress. Objective - Vital Signs Vital signs: Vital Signs Temp 98.7 F 03/04/18 07:12 Pulse 85 03/04/18 07:12 Resp 14 03/04/18 07:12 BP 131/64 03/04/18 07:12 Pulse Ox 95 03/04/18 07:12 Intake & Output 03/03/18 03/04/18 03/04/18 18:59 06:59 18:59 Intake Total 700 1300 Output Total 200 410 Balance 500 890 Weight 47.627 kg Intake: Intake, IV Titration 700 600 Amount Lactated Ringers 1,000 ml 700 600 @ 100 mls/hr IV .Q10H [facility] Rx#:[id number] Oral 700 Output: Urine 200 410 Other: Voiding Method Indwelling Catheter Indwelling Catheter Indwelling Catheter - Exam This is a pleasant 87-year-old female in no acute distress. She does have some confusion this morning. Exam of the lower extremities reveals that her dressing is clean, dry and intact. She has full foot and ankle motion without difficulty or pain. Pedal pulse is +2/4. Capillary refills less than 3 seconds. Neurovascular status to the lower extremity is intact. - Labs CBC & Chem 7: 03/04/18 06:37 03/03/18 07:50 Labs: Abnormal Lab Results - Last 24 Hours (Table) 03/03/18 03/04/18 Range/Units 07:50 06:37 RBC 2.54 L (3.80-5.40) m/uL Hgb 7.7 L D (11.4-16.0) gm/dL Hct 24.0 L (34.0-46.0) % Plt Count 111 L (150-450) k/uL Lymphocytes # 0.5 L (1.0-4.8) k/uL Chloride 111 H (98-107) mmol/L BUN 20 H (7-17) mg/dL Glucose 109 H (74-99) mg/dL Calcium 8.2 L (8.4-10.2) mg/dL Assessment and Plan Assessment: The clinical findings are discussed the patient. We'll continue care and plan discharged to inpatient rehab Wednesday. (1) Dementia Current Visit: Yes Status: Chronic Code(s): F03.90 - UNSPECIFIED DEMENTIA WITHOUT BEHAVIORAL DISTURBANCE SNOMED Code(s): 76280663 (2) Closed left hip fracture Current Visit: Yes Status: Acute Code(s): S72.002A - FRACTURE OF UNSP PART OF NECK OF LEFT FEMUR, INIT SNOMED Code(s): 399203443 (3) Fall Current Visit: Yes Status: Acute Code(s): W19.XXXA - UNSPECIFIED FALL, INITIAL ENCOUNTER SNOMED Code(s): 8057854
[2018-03-04] MEDS: LEVOTHYROXINE 88 MCG TAB PO SCH (08:49)
[2018-03-04] MEDS: FAMOTIDINE 20 MG TAB PO SCH (08:50)
[2018-03-04] MEDS: BISACODYL 5 MG TABLET.DR PO SCH (08:50)
[2018-03-04] MEDS: hydrOXYzine PAMOATE 25 MG CAP PO PRN ×2 (09:06→19:21)
[2018-03-04] MEDS: HYDROcodone/APAP 5-325MG 1 EACH TAB PO PRN ×2 (09:07→19:21)
[2018-03-04] MEDS: KETOROLAC 30 MG/ML 1 ML VIAL IVP PRN (14:35)
--- NOTE | 2018-03-04 16:55 | P.PN ---
Subjective 87-year-old successfully underwent a left hip arthroplasty. Patient is still having pain and tachycardic secondary to that patient was started on opiates as hit her pain is not well controlled. Patient appears to have tolerated those opiates because of which I didn't make any changes today. Patient is comparing of severe pain in the surgical site areas 03/04/2018 Patient is still complaining of pain. Decreased urine output will closely monitored but will continue with the Toradol because of her continued pain, patient is getting confused occasionally may be related to pain on opiate analgesia. There is no other alternative except to continue this opiate analogies a patient is on Seroquel for agitation episodes. Objective - Vital Signs Vital signs: Vital Signs Temp 98.4 F 03/04/18 15:18 Pulse 109 H 03/04/18 15:18 Resp 18 03/04/18 15:18 BP 133/72 03/04/18 15:18 Pulse Ox 92 L 03/04/18 15:18 Intake & Output 03/03/18 03/04/18 03/04/18 18:59 06:59 18:59 Intake Total 700 1300 140 Output Total 200 410 150 Balance 500 890 -10 Weight 47.627 kg Intake: Intake, IV Titration 700 600 Amount Lactated Ringers 1,000 ml 700 600 @ 100 mls/hr IV .Q10H [facility] Rx#:[id number] Oral 700 140 Output: Urine 200 410 150 Other: Voiding Method Indwelling Catheter Indwelling Catheter Indwelling Catheter - Exam PHYSICAL EXAMINATION: GENERAL: The patient is alert and oriented x1-2, not in any acute distress. Thin built cachectic female HEENT: Pupils are round and equally reacting to light. EOMI. No scleral icterus. No conjunctival pallor. Normocephalic, atraumatic. No pharyngeal erythema. No thyromegaly. CARDIOVASCULAR: S1 and S2 present. No murmurs, rubs, or gallops. PULMONARY: Chest is clear to auscultation, no wheezing or crackles. ABDOMEN: Soft, nontender, nondistended, normoactive bowel sounds. No palpable organomegaly. MUSCULOSKELETAL: Deferred to orthopedic surgery EXTREMITIES: No cyanosis, clubbing, or pedal edema. NEUROLOGICAL: Gross neurological examination did not reveal any focal deficits. SKIN: No rashes. - Labs CBC & Chem 7: 03/04/18 06:37 03/03/18 07:50 Labs: Abnormal Lab Results - Last 24 Hours (Table) 03/04/18 Range/Units 06:37 RBC 2.54 L (3.80-5.40) m/uL Hgb 7.7 L D (11.4-16.0) gm/dL Hct 24.0 L (34.0-46.0) % Plt Count 111 L (150-450) k/uL Lymphocytes # 0.5 L (1.0-4.8) k/uL Assessment and Plan Plan: -Status post left hip arthroplasty: DVT prophylaxis per primary service and pain management is being managed by primary service as well. -Hypertension will monitor blood pressure hold off any hypertensive medications -Hypothyroidism continue levothyroxine -Pain management: Recommend to avoid benzos , barbiturates, anticollagen medications can use Toradol with kidney function monitoring. Patient does use ibuprofen. [id number] protein calorie malnutrition -DVT prophylaxis: As per primary service
[2018-03-04] MEDS: SENNOSIDES-DOCUSATE SODIUM 1 EACH TAB PO SCH (19:34)
[2018-03-05] MEDS: LACTATED RINGERS 1,000 ML IV SCH (04:10)
[2018-03-05] MEDS: HYDROcodone/APAP 5-325MG 1 EACH TAB PO PRN ×3 (05:31→20:05)
[2018-03-05 08:15] LABS: Anion Gap 10 mmol/L; Blood Urea Nitrogen 30 mg/dL (7-17); Calcium 8.7 mg/dL (8.4-10.2); Carbon Dioxide 25 mmol/L (22-30); Chloride 107 mmol/L (98-107); Glucose 104 mg/dL (74-99); Potassium 4.2 mmol/L (3.5-5.1); Sodium 142 mmol/L (137-145)
[2018-03-05] MEDS: hydrOXYzine PAMOATE 25 MG CAP PO PRN (08:21)
[2018-03-05] MEDS: FAMOTIDINE 20 MG TAB PO SCH (08:21)
[2018-03-05] MEDS: LEVOTHYROXINE 88 MCG TAB PO SCH (08:23)
[2018-03-05] MEDS: BISACODYL 5 MG TABLET.DR PO SCH (08:23)
--- NOTE | 2018-03-05 12:07 | P.PN ---
Subjective Progress Note Date: 03/05/18 Principal diagnosis: Left IT fx Patient is seen at bedside this morning. She is postop day #3 from closed reduction internal fixation with IT nail for left hip fracture. She has pain at the surgical site as expected but denies any new complaints. She denies numbness, tingling or calf pain. Review of systems is negative for fever, chills, chest pain, shortness of breath or other Objective - Vital Signs Vital signs: Vital Signs Temp 97.4 F L 03/05/18 08:13 Pulse 93 03/05/18 08:13 Resp 20 03/05/18 08:13 BP 160/80 03/05/18 08:13 Pulse Ox 91 L 03/05/18 08:13 Intake & Output 03/04/18 03/05/18 03/05/18 18:59 06:59 18:59 Intake Total 260 100 Output Total 225 300 Balance 35 -200 Intake: Oral 260 Other 100 Output: Urine 225 300 Other: Voiding Method Indwelling Catheter Indwelling Catheter Indwelling Catheter - Exam Inspection reveals a benign surgical wound. There is no active bleeding or drainage. Neurovascular status is intact throughout the lower extremity with motor and sensation fully intact. Calf is soft and nontender. 2+ dorsalis pedis pulse and less than 2 second cap refill is present - Constitutional General appearance: Present: no acute distress - Labs CBC & Chem 7: 03/04/18 06:37 03/05/18 06:19 Labs: Abnormal Lab Results - Last 24 Hours (Table) 03/05/18 Range/Units 06:19 BUN 30 H (7-17) mg/dL Glucose 104 H (74-99) mg/dL Assessment and Plan (1) Closed left hip fracture Narrative/Plan: She will continue with routine postop orthopedic protocol including pain management, wound care, physical therapy, DVT prophylaxis and medical management. Expect that she will transfer to rehab in next few days Current Visit: Yes Status: Acute Code(s): S72.002A - FRACTURE OF UNSP PART OF NECK OF LEFT FEMUR, INIT SNOMED Code(s): 774628397 Time with Patient: Less than 30
--- NOTE | 2018-03-05 12:13 | XR ---
EXAMINATION TYPE: XR chest 1V DATE OF EXAM: 03/05/2018 COMPARISON: 03/02/2018 HISTORY: Shortness of breath FINDINGS: Noted is pulmonary venous congestion with scattered infiltrates. There is also cardiomegaly and small effusions. IMPRESSION: Findings compatible with congestive failure. Infiltrates of other etiology are not excluded. Clinical correlation and progress studies are recommended.
[2018-03-05] MEDS: ASPIRIN 325 MG TAB PO SCH ×2 (12:54→20:05)
[2018-03-05] MEDS ORDERED: FUROSEMIDE 10 MG/ML 4 ML VIAL IV STA (13:40)
--- NOTE | 2018-03-05 13:48 | P.PN ---
Subjective 87-year-old successfully underwent a left hip arthroplasty. Patient is still having pain and tachycardic secondary to that patient was started on opiates as hit her pain is not well controlled. Patient appears to have tolerated those opiates because of which I didn't make any changes today. Patient is comparing of severe pain in the surgical site areas 03/04/2018 Patient is still complaining of pain. Decreased urine output will closely monitored but will continue with the Toradol because of her continued pain, patient is getting confused occasionally may be related to pain on opiate analgesia. There is no other alternative except to continue this opiate analogies a patient is on Seroquel for agitation episodes. 03/05/2018 Patient has quite a bit confused, Vistaril was discontinued as nursing staff to avoid opiates as well for pain. Patient saturations are low no significant crackles on exam because of her low saturations after the chest x-ray which did show pulmonary edema will give a dose of Lasix obtain echo cardiac exam. Patient is a poor historian, patient is not in respiratory distress Objective - Vital Signs Vital signs: Vital Signs Temp 97.4 F L 03/05/18 08:13 Pulse 93 03/05/18 08:13 Resp 20 03/05/18 08:13 BP 160/80 03/05/18 08:13 Pulse Ox 91 L 03/05/18 08:13 Intake & Output 03/04/18 03/05/18 03/05/18 18:59 06:59 18:59 Intake Total 260 100 Output Total 225 300 Balance 35 -200 Intake: Oral 260 Other 100 Output: Urine 225 300 Other: Voiding Method Indwelling Catheter Indwelling Catheter Indwelling Catheter - Exam PHYSICAL EXAMINATION: GENERAL: The patient is alert and oriented x1-2, not in any acute distress. Thin built cachectic female HEENT: Pupils are round and equally reacting to light. EOMI. No scleral icterus. No conjunctival pallor. Normocephalic, atraumatic. No pharyngeal erythema. No thyromegaly. CARDIOVASCULAR: S1 and S2 present. No murmurs, rubs, or gallops. PULMONARY: Chest is clear to auscultation, no wheezing or crackles. ABDOMEN: Soft, nontender, nondistended, normoactive bowel sounds. No palpable organomegaly. MUSCULOSKELETAL: Deferred to orthopedic surgery EXTREMITIES: No cyanosis, clubbing, or pedal edema. NEUROLOGICAL: Gross neurological examination did not reveal any focal deficits. SKIN: No rashes. - Labs CBC & Chem 7: 03/04/18 06:37 03/05/18 06:19 Labs: Abnormal Lab Results - Last 24 Hours (Table) 03/05/18 Range/Units 06:19 BUN 30 H (7-17) mg/dL Glucose 104 H (74-99) mg/dL Assessment and Plan Plan: -Status post left hip arthroplasty: DVT prophylaxis per primary service and pain management is being managed by primary service as well. -Hypertension will monitor blood pressure hold off any hypertensive medications -Hypothyroidism continue levothyroxine -Pain management: Recommend to avoid benzos , barbiturates, anticollagen medications can use Toradol with kidney function monitoring. Patient does use ibuprofen. [id number] protein calorie malnutrition -Pulmonary edema unsure of the ejection fraction obtaining echocardiogram will give a dose of Lasix IV fluids were discontinued -DVT prophylaxis: As per primary service
--- NOTE | 2018-03-05 17:52 | US ---
EXAMINATION TYPE: US venous doppler duplex LE LT DATE OF EXAM: 03/05/2018 4:02 PM COMPARISON: NONE CLINICAL HISTORY: r/o dvt. recent left hip sx, patient is confused and in a lot of left hip pain SIDE PERFORMED: Left TECHNIQUE: The lower extremity deep venous system is examined utilizing real time linear array sonog eduard with graded compression, doppler sonography and color-flow sonography. VESSELS IMAGED: External Iliac Vein (EIV) Common Femoral Vein Deep Femoral Vein Greater Saphenous Vein * Femoral Vein Popliteal Vein Small Saphenous Vein * Proximal Calf Veins (* superficial vessels) FINDINGS: No appearance of DVT but there were limitations to exam. Elderly patient unable to hold st ill and left leg was turned inward, limiting scanning approach. Unable to visualize left FV at mid an d dist level with color off. Was able to obtain good compression of other vessels and doppler flow. Grayscale, color doppler, spectral doppler imaging performed of the deep veins of the lower extremiti es. There is normal flow, compressibility, vascular waveforms. IMPRESSION: NEGATIVE FOR LEFT LOWER EXTREMITY.
[2018-03-05] MEDS: SENNOSIDES-DOCUSATE SODIUM 1 EACH TAB PO SCH (20:05)
[2018-03-06] MEDS: HYDROmorphone 2 MG TAB PO PRN ×2 (01:28→23:10)
[2018-03-06] MEDS: ASPIRIN 325 MG TAB PO SCH ×2 (11:03→21:16)
[2018-03-06] MEDS: FAMOTIDINE 20 MG TAB PO SCH (11:03)
[2018-03-06] MEDS: LEVOTHYROXINE 88 MCG TAB PO SCH (11:03)
[2018-03-06] MEDS: BISACODYL 5 MG TABLET.DR PO SCH (11:11)
[2018-03-06] MEDS ORDERED: FUROSEMIDE 10 MG/ML 4 ML VIAL IV STA (11:55)
[2018-03-06] MEDS: ACETAMINOPHEN TAB 325 MG TAB PO PRN ×2 (12:25→18:20)
[2018-03-06] MEDS: METOPROLOL TARTRATE 25 MG TAB PO SCH ×2 (12:27→21:16)
--- NOTE | 2018-03-06 12:38 | P.PN ---
Subjective Progress Note Date: 03/06/18 Principal diagnosis: Left IT fx Patient is seen at bedside this morning. She is postop day #4 from closed reduction internal fixation with IT nail for left hip fracture. She has pain at the surgical site as expected but denies any new complaints. She denies numbness, tingling or calf pain. Review of systems is negative for fever, chills, chest pain, shortness of breath or other Objective - Vital Signs Vital signs: Vital Signs Temp 97.1 F L 03/06/18 08:57 Pulse 100 03/06/18 12:27 Resp 16 03/06/18 08:57 BP 177/74 03/06/18 12:27 Pulse Ox 95 03/06/18 08:57 Intake & Output 03/05/18 03/06/18 03/06/18 18:59 06:59 18:59 Intake Total 1040 Output Total 1150 350 Balance -1150 690 Intake: Oral 1040 Output: Urine 1150 350 Uretheral (Goss) 200 Other: Voiding Method Indwelling Catheter Bedside Commode Diaper # Voids 2 - Exam Inspection reveals a benign surgical wound. There is no active bleeding or drainage. Neurovascular status is intact throughout the lower extremity with motor and sensation fully intact. Calf is soft and nontender. 2+ dorsalis pedis pulse and less than 2 second cap refill is present - Constitutional General appearance: Present: no acute distress - Labs CBC & Chem 7: 03/04/18 06:37 03/05/18 06:19 Assessment and Plan (1) Closed left hip fracture Narrative/Plan: She will continue with routine postop orthopedic protocol including pain management, wound care, physical therapy, DVT prophylaxis and medical management. Expect that she will transfer to rehab in next few days Current Visit: Yes Status: Acute Priority: Medium Code(s): S72.002A - FRACTURE OF UNSP PART OF NECK OF LEFT FEMUR, INIT SNOMED Code(s): 204081389 Time with Patient: Less than 30
[2018-03-06 12:45] LABS: Basophils % (A) 1 %; Eosinophils # (A) 0.1 k/uL (0-0.7); Eosinophils % (A) 2 %; HCT 24.5 % (34.0-46.0); HGB 7.9 gm/dL (11.4-16.0); Lymphocytes # (A) 0.4 k/uL (1.0-4.8); Lymphocytes % (A) 9 %; MCHC 32.3 g/dL (31.0-37.0); MCV 92.9 fL (80.0-100.0); Mean Platelet Volume 9.1; Monocytes # (A) 0.3 k/uL (0-1.0); Monocytes % (A) 6 %; Neutrophils # (A) 3.8 k/uL (1.3-7.7); Neutrophils % (A) 81 %; RBC 2.64 m/uL (3.80-5.40); RDW 14.6 % (11.5-15.5); WBC 4.7 k/uL (3.8-10.6)
[2018-03-06 12:46] LABS: Platelet Count 178 k/uL (150-450)
[2018-03-06 13:00] LABS: Anion Gap 10 mmol/L; Blood Urea Nitrogen 25 mg/dL (7-17); Calcium 8.3 mg/dL (8.4-10.2); Carbon Dioxide 27 mmol/L (22-30); Chloride 104 mmol/L (98-107); Glucose 103 mg/dL (74-99); Potassium 3.6 mmol/L (3.5-5.1); Sodium 141 mmol/L (137-145)
--- NOTE | 2018-03-06 13:54 | P.PN ---
Subjective 87-year-old successfully underwent a left hip arthroplasty. Patient is still having pain and tachycardic secondary to that patient was started on opiates as hit her pain is not well controlled. Patient appears to have tolerated those opiates because of which I didn't make any changes today. Patient is comparing of severe pain in the surgical site areas 03/04/2018 Patient is still complaining of pain. Decreased urine output will closely monitored but will continue with the Toradol because of her continued pain, patient is getting confused occasionally may be related to pain on opiate analgesia. There is no other alternative except to continue this opiate analogies a patient is on Seroquel for agitation episodes. 03/05/2018 Patient has quite a bit confused, Vistaril was discontinued as nursing staff to avoid opiates as well for pain. Patient saturations are low no significant crackles on exam because of her low saturations after the chest x-ray which did show pulmonary edema will give a dose of Lasix obtain echo cardiac exam. Patient is a poor historian, patient is not in respiratory distress 03/06/2018 Patient has on of confusion. I believe her confusion is actually better. Can use to complain on and off pain patient chest x-ray showing pulmonary edema will give her 1 more dose of Lasix patient is tachycardic in atrial fibrillation cardiac he was consulted patient was given a dose of metoprolol. Objective - Vital Signs Vital signs: Vital Signs Temp 97.1 F L 03/06/18 08:57 Pulse 100 03/06/18 12:27 Resp 16 03/06/18 08:57 BP 177/74 03/06/18 12:27 Pulse Ox 95 03/06/18 08:57 Intake & Output 03/05/18 03/06/18 03/06/18 18:59 06:59 18:59 Intake Total 1040 Output Total 1150 350 Balance -1150 690 Intake: Oral 1040 Output: Urine 1150 350 Uretheral (Goss) 200 Other: Voiding Method Indwelling Catheter Bedside Commode Diaper # Voids 2 - Exam PHYSICAL EXAMINATION: GENERAL: The patient is alert and oriented x1-2, not in any acute distress. Thin built cachectic female HEENT: Pupils are round and equally reacting to light. EOMI. No scleral icterus. No conjunctival pallor. Normocephalic, atraumatic. No pharyngeal erythema. No thyromegaly. CARDIOVASCULAR: S1 and S2 present. Tachycardic irregularly irregular rhythm PULMONARY: Chest is clear to auscultation, no wheezing or crackles. ABDOMEN: Soft, nontender, nondistended, normoactive bowel sounds. No palpable organomegaly. MUSCULOSKELETAL: Deferred to orthopedic surgery EXTREMITIES: No cyanosis, clubbing, or pedal edema. NEUROLOGICAL: Gross neurological examination did not reveal any focal deficits. SKIN: No rashes. - Labs CBC & Chem 7: 03/06/18 12:15 03/06/18 12:15 Labs: Abnormal Lab Results - Last 24 Hours (Table) 03/06/18 03/06/18 Range/Units 12:15 12:15 RBC 2.64 L (3.80-5.40) m/uL Hgb 7.9 L (11.4-16.0) gm/dL Hct 24.5 L (34.0-46.0) % Lymphocytes # 0.4 L (1.0-4.8) k/uL BUN 25 H (7-17) mg/dL Glucose 103 H (74-99) mg/dL Calcium 8.3 L (8.4-10.2) mg/dL Assessment and Plan Plan: -Status post left hip arthroplasty: DVT prophylaxis per primary service and pain management is being managed by primary service as well. -Pulmonary edema: Patient may have diastolic dysfunction awaiting echocardiogram results, cardiology was consulted -New onset atrial fibrillation: As mentioned above cardiology was consulted and will not start her on anticoagulation yet. Patient was given a dose of metoprolol and was started on metoprolol twice a day -Hypertension , we will just use metoprolol now continue to monitor -Hypothyroidism continue levothyroxine -Pain management: Recommend to avoid benzos , barbiturates,: Anticholinergic medications can use Toradol with kidney function monitoring. Vqen-or-djjvrddr protein calorie malnutrition -Pulmonary edema unsure of the ejection fraction obtaining echocardiogram patient will be given another dose of Lasix today -DVT prophylaxis: As per primary service
--- NOTE | 2018-03-06 14:29 | ECHOF ---
Referral Reason:CHF MEASUREMENTS -------- HEIGHT: 167.6 cm WEIGHT: 47.6 kg BP: IVSd: 1.0 cm (0.6 - 1.1) LVIDd: 5.1 cm (3.9 - 5.3) LVPWd: 1.0 cm (0.6 - 1.1) IVSs: 1.3 cm LVIDs: 4.8 cm LVPWs: 1.6 cm LAESV Index (A-L): 42.25 ml/m Ao Diam: 3.3 cm (2.0 - 3.7) AV Cusp: 1.5 cm (1.5 - 2.6) LA Diam: 4.5 cm (2.7 - 3.8) MV EXCURSION: 12.148 mm (> 18.000) MV EF SLOPE: 49 mm/s (70 - 150) EPSS: 1.2 cm MV E Juawn: 0.98 m/s MV DecT: 93 ms MV A Juwan: 1.24 m/s MV E/A Ratio: 0.80 AV maxP.34 mmHg AV meanP.11 mmHg RAP: 5.00 mmHg RVSP: 43.85 mmHg FINDINGS -------- Sinus rhythm with extra systolic beats. This was a technically good study. The left ventricular size is normal. Left ventricular wall thickness is normal. There is severe g lobal hypokinesis of LV . Overall left ventricular systolic function is severely impaired with, an EF between 20 - 25 %. The right ventricle is normal in size and function. LA is severely dilated >40 ml/m2 The right atrium is normal in size. Aortic valve is trileaflet and is moderately thickened. There is moderate aortic valve sclerosis. Peak/mean gradient across the Aortic Valve is 13.34mmHg / 7.11mmHg. The mitral valve leaflets are mildly thickened. Mild mitral regurgitation is present. Mild tricuspid regurgitation present. There is mild pulmonary hypertension. The right ventricular systolic pressure, as measured by Doppler, is 43.85mmHg. Pulmonic valve appears structurally normal. The aortic root size is normal. There is a trivial pericardial effusion present. Large Pleural Effusion. CONCLUSIONS -------- 1. Sinus rhythm with extra systolic beats. 2. This was a technically good study. 3. The left ventricular size is normal. 4. Left ventricular wall thickness is normal. 5. There is severe global hypokinesis of LV . 6. Overall left ventricular systolic function is severely impaired with, an EF between 20 - 25 %. 7. The right ventricle is normal in size and function. 8. LA is severely dilated >40 ml/m2 9. The right atrium is normal in size. 10. Aortic valve is trileaflet and is moderately thickened. 11. There is moderate aortic valve sclerosis. 12. Peak/mean gradient across the Aortic Valve is 13.34mmHg / 7.11mmHg. 13. The mitral valve leaflets are mildly thickened. 14. Mild mitral regurgitation is present. 15. Mild tricuspid regurgitation present. 16. There is mild pulmonary hypertension. 17. The right ventricular systolic pressure, as measured by Doppler, is 43.85mmHg. 18. Pulmonic valve appears structurally normal. 19. The aortic root size is normal. 20. There is a trivial pericardial effusion present. 21. Large Pleural Effusion. GRAIN OILSEED OR PASTURE GROWER: Sheela Mccall RDCS
[2018-03-06] MEDS: SENNOSIDES-DOCUSATE SODIUM 1 EACH TAB PO SCH (21:16)
[2018-03-07 07:03] LABS: HGB 7.8 gm/dL (11.4-16.0); MCHC 32.5 g/dL (31.0-37.0); MCV 92.3 fL (80.0-100.0); Mean Platelet Volume 8.4; Platelet Count 220 k/uL (150-450); RDW 14.9 % (11.5-15.5); WBC 6.5 k/uL (3.8-10.6)
[2018-03-07 07:14] LABS: Anion Gap 8 mmol/L; Blood Urea Nitrogen 22 mg/dL (7-17); Calcium 8.1 mg/dL (8.4-10.2); Carbon Dioxide 29 mmol/L (22-30); Chloride 103 mmol/L (98-107); Glucose 96 mg/dL (74-99); Potassium 3.3 mmol/L (3.5-5.1); Sodium 140 mmol/L (137-145)
[2018-03-07] MEDS: KETOROLAC 30 MG/ML 1 ML VIAL IVP PRN (07:39)
[2018-03-07] MEDS: LEVOTHYROXINE 88 MCG TAB PO SCH (07:41)
[2018-03-07] MEDS: METOPROLOL TARTRATE 25 MG TAB PO SCH ×2 (07:41→20:29)
[2018-03-07] MEDS: FAMOTIDINE 20 MG TAB PO SCH (07:41)
--- NOTE | 2018-03-07 08:04 | P.DS ---
Providers Date of admission: 03/02/18 11:09 Expected date of discharge: 03/07/18 Attending physician: Taco Santiago Consults: 03/02/18 10:51 Consult Physician Stat Consulting Provider: Mey Reed Consult Reason/Comments: Surgical clearance Do you want consulting provider notified?: Yes 03/06/18 09:37 Consult Physician Urgent Consulting Provider: Raysa Alves Consult Reason/Comments: sinus tachycardia with pac, pvcs Do you want consulting provider notified?: Yes Primary care physician: Cate Miner - Discharge Diagnosis(es) (1) Dementia Current Visit: Yes Status: Chronic (2) Closed left hip fracture Current Visit: Yes Status: Acute Priority: Medium (3) Fall Current Visit: Yes Status: Acute Hospital Course: This is a 87-year-old female who is admitted to [facility] on left after falling and sustaining injury to the left hip. On exam and x-ray in the emergency department he is found to have an intertrochanteric fracture of the left hip. He is admitted to our service for surgical intervention and care. Patient is taken to surgery for close reduction and insertion of intertrochanteric nail of the left hip. The procedure was performed without complication or sequelae. The patient is doing fairly well postoperatively. Vital signs and labs are stable on postoperative day #5. Patient is discharged to inpatient rehab in good condition. Please see med rec for accurate list of discharge medications. Patient Condition at Discharge: Stable Plan - Discharge Summary Discharge Rx Participant: No New Discharge Prescriptions: New Aspirin 325 mg PO BID #60 tab HYDROcodone/APAP 5-325MG [Jefferson 5-325] 1 - 2 each PO Q4-6H PRN #90 tab PRN Reason: Pain Sennosides-Docusate Sodium [Senokot-S] 1 tab PO BID #60 tablet No Action Levothyroxine Sodium [Synthroid] 88 mcg PO DAILY Ergocalciferol [Vitamin D2 (DRISDOL)] 50,000 unit PO FR Ibuprofen [Advil] 400 mg PO HS HYDROcodone/APAP 5-325MG [Jefferson 5-325] 1 tab PO Q6HR PRN PRN Reason: Pain Bisacodyl [Dulcolax] 5 mg PO DAILY #20 tablet.dr Discharge Medication List Ergocalciferol [Vitamin D2 (DRISDOL)] 50,000 unit PO FR 01/31/16 [History] Levothyroxine Sodium [Synthroid] 88 mcg PO DAILY 11/03/15 [History] Bisacodyl [Dulcolax] 5 mg PO DAILY #20 tablet. 02/07/18 [Rx] HYDROcodone/APAP 5-325MG [Jefferson 5-325] 1 tab PO Q6HR PRN 02/07/18 [History] Ibuprofen [Advil] 400 mg PO HS 02/07/18 [History] Aspirin 325 mg PO BID #60 tab 03/07/18 [Rx] HYDROcodone/APAP 5-325MG [Jefferson 5-325] 1 - 2 each PO Q4-6H PRN #90 tab 03/07/18 [Rx] Sennosides-Docusate Sodium [Senokot-S] 1 tab PO BID #60 tablet 03/07/18 [Rx] Follow up Appointment(s)/Referral(s): Shelea Younger PAC [PHYSICIAN CONSUMER AFFAIRS DIRECTOR] - 3 Weeks Cate Miner MD [Primary Care Provider] - 1-2 days Activity/Diet/Wound Care/Special Instructions: Toe touch weight bearing with walker. Remove sher 2 weeks post op. Discharge Disposition: TRANSFER TO SNF/ECF
--- NOTE | 2018-03-07 08:38 | CONS ---
CONSULTATION Mrs. Hawkins is an 87-year-old female who presented with a fall and a fractured hip. She underwent surgical intervention. Cardiology consultation was requested because of atrial arrhythmia. Patient has a history of dementia. She is awake but confused. She is not quite sure why she is in the hospital. She denies any prior cardiac history or prior history of arrhythmia. She had an echocardiogram done on March 05 that showed a severely impaired left ventricular systolic function with a mean gradient of 7 mmHg across the aortic valve. On the rise time of her physical examination she is lying supine. She does not appear to be dyspneic. There are no symptoms of chest discomfort. She denies any palpitation or syncope. I reviewed her rhythm strip that revealed sinus mechanism with frequent PACs and occasional PVCs. No accurate review of systems could be obtained from the patient, but she denies any history of recent cough or fever. She denies any history of documented asthma or emphysema. Denies any GI or bleeding. MEDICATION: As outpatient included Dulcolax, vitamin D, hydrocodone, Advil, and Synthroid. PHYSICAL EXAMINATION: She is an 87-year-old female, alert, confused in no apparent distress. Blood pressure 144/60 with a heart in the 80s. HEAD: Normocephalic, eyes sclerae nonicteric. NECK: Good upstroke. No bruit. LUNGS: Decreased air exchange in the bases. HEART: Regular rate and rhythm. S1, S2. No S3 with systolic murmur, ejection type heard at the base. No diastolic murmur. No rub. ABDOMEN: Soft, nontender. Positive bowel sounds. No organomegaly. EXTREMITIES: No edema. LAB DATA: Revealed a hemoglobin of 7.8, BUN and creatinine of 25 and 0.57. Her EKG on admission showed a sinus mechanism with occasional PACs with left bundle branch block. There is a rhythm strip that was labeled as atrial fibrillation, but appears to be more sinus mechanism with frequent PACs. Subsequent EKG revealed sinus mechanism with occasional PVCs and frequent PACs. IMPRESSION: 1. Status post hip fracture and surgery. 2. Frequent premature atrial contractions and premature ventricular contractions. 3. Cardiomyopathy of unclear etiology or duration. Appears to be asymptomatic at this time. 4. Advanced dementia. RECOMMENDATION: Patient has been started on a beta karla, metoprolol tartrate 25 mg twice a day. I will continue on that dose. I will add a low dose of an RADHA inhibitor. I do not see any evidence of atrial fibrillation or indication for anticoagulation from the cardiac standpoint, I would not pursue any aggressive cardiac workup. Thank you for this consult. We will follow with you. DAVID / KARRIE: [id number] /
[2018-03-07] MEDS ORDERED: LISINOPRIL 2.5 MG TAB PO SCH (09:00)
[2018-03-07] MEDS: ASPIRIN 325 MG TAB PO SCH ×2 (09:03→23:19)
[2018-03-07] MEDS: BISACODYL 5 MG TABLET.DR PO SCH (09:36)
--- NOTE | 2018-03-07 10:49 | XR ---
EXAMINATION TYPE: XR chest 1V portable DATE OF EXAM: 03/07/2018 COMPARISON: 03/05/2018 HISTORY: History of pulmonary edema. Shortness of breath. TECHNIQUE: Single frontal view of the chest is obtained. FINDINGS: There is a layering small right pleural effusion, slightly improved from the prior. Small left pleural effusion appears overall similar in volume. Mild interstitial pulmonary vascular congest ion and accentuated pulmonary interstitial lung markings are also similar to the prior. Findings are superimposed upon a background COPD with pulmonary hyperinflation and biapical lucency. Cardiomediast inal silhouette is partially obscured but overall stable. There is generalized osseous demineralizati on. IMPRESSION: Slightly improved right pleural effusion with persistent interstitial edema, pulmonary v ascular congestion and pleural effusions likely on the basis of congestive heart failure. Findings ar e superimposed upon COPD.
[2018-03-07] MEDS ORDERED: Potassium Replacement Protocol 1 EACH MISC MISCELLANE PRN (11:02)
[2018-03-07] MEDS ORDERED: Magnesium Replacement Protocol 1 EACH MISC MISCELLANE PRN (11:03)
--- NOTE | 2018-03-07 12:06 | P.PN ---
Subjective Progress Note Date: 03/07/18 Progress note being dictated for Dr. Fisher. 87-year-old successfully underwent a left hip arthroplasty. Patient is still having pain and tachycardic secondary to that patient was started on opiates as hit her pain is not well controlled. Patient appears to have tolerated those opiates because of which I didn't make any changes today. Patient is comparing of severe pain in the surgical site areas 03/04/2018 Patient is still complaining of pain. Decreased urine output will closely monitored but will continue with the Toradol because of her continued pain, patient is getting confused occasionally may be related to pain on opiate analgesia. There is no other alternative except to continue this opiate analogies a patient is on Seroquel for agitation episodes. 03/05/2018 Patient has quite a bit confused, Vistaril was discontinued as nursing staff to avoid opiates as well for pain. Patient saturations are low no significant crackles on exam because of her low saturations after the chest x-ray which did show pulmonary edema will give a dose of Lasix obtain echo cardiac exam. Patient is a poor historian, patient is not in respiratory distress 03/06/2018 Patient has on of confusion. I believe her confusion is actually better. Can use to complain on and off pain patient chest x-ray showing pulmonary edema will give her 1 more dose of Lasix patient is tachycardic in atrial fibrillation cardiac he was consulted patient was given a dose of metoprolol. 03/07/2018 received IV push Lasix yesterday ,chest x-ray reporting persistent pulmonary edema, mildly improved. Tachycardia improving, heart rates high 90s to low 100s. Telemetry reporting atrial fibrillation. Echo reporting severely impaired LV function, EF 20-25%, severe global hypokinesis of LV. Potassium 3.3. Objective - Vital Signs Vital signs: Vital Signs Temp 97.4 F L 03/07/18 07:36 Pulse 98 03/07/18 07:36 Resp 16 03/07/18 07:36 BP 155/64 03/07/18 07:36 Pulse Ox 92 L 03/07/18 07:36 Intake & Output 03/06/18 03/07/18 03/07/18 18:59 06:59 18:59 Intake Total 100 900 Balance 100 900 Weight 47.627 kg Intake: Oral 100 900 Other: Voiding Method Bedside Commode Diaper Diaper # Voids 1 2 # Bowel Movements 1 - Exam GENERAL: The patient is alert and oriented x1-2, not in any acute distress. Thin built cachectic female HEENT: Pupils are round and equally reacting to light. EOMI. No scleral icterus. No conjunctival pallor. Normocephalic, atraumatic. No pharyngeal erythema. No thyromegaly. CARDIOVASCULAR: S1 and S2 present. Tachycardic irregularly irregular rhythm PULMONARY: Chest is clear to auscultation, no wheezing or crackles. Bilateral bases diminished ABDOMEN: Soft, nontender, nondistended, normoactive bowel sounds. No palpable organomegaly. MUSCULOSKELETAL: Deferred to orthopedic surgery EXTREMITIES: No cyanosis, clubbing, or pedal edema. NEUROLOGICAL: Gross neurological examination did not reveal any focal deficits. SKIN: No rashes. - Labs CBC & Chem 7: 03/07/18 06:37 03/07/18 06:37 Labs: Abnormal Lab Results - Last 24 Hours (Table) 03/06/1818 03/07/18 Range/Units 12:15 12:15 06:37 RBC 2.64 L 2.60 L (3.80-5.40) m/uL Hgb 7.9 L 7.8 L (11.4-16.0) gm/dL Hct 24.5 L 24.0 L (34.0-46.0) % Lymphocytes # 0.4 L (1.0-4.8) k/uL Potassium (3.5-5.1) mmol/L BUN 25 H (7-17) mg/dL Glucose 103 H (74-99) mg/dL Calcium 8.3 L (8.4-10.2) mg/dL 03/07/18 Range/Units 06:37 RBC (3.80-5.40) m/uL Hgb (11.4-16.0) gm/dL Hct (34.0-46.0) % Lymphocytes # (1.0-4.8) k/uL Potassium 3.3 L (3.5-5.1) mmol/L BUN 22 H (7-17) mg/dL Glucose (74-99) mg/dL Calcium 8.1 L (8.4-10.2) mg/dL Assessment and Plan Assessment: -Status post left hip arthroplasty: DVT prophylaxis per primary service and pain management is being managed by primary service as well. -Pulmonary edema: Acute on chronic CHF, systolic dysfunction, EF 20-25%. -New onset atrial fibrillation: As mentioned above cardiology was consulted and will not start her on anticoagulation yet. -Hypertension -Hypothyroidism -Pain management: Recommend to avoid benzos , barbiturates,: Anticholinergic medications can use Toradol with kidney function monitoring. [id number] protein calorie malnutrition -DVT prophylaxis: As per primary service -Hypokalemia Plan: Continue current medication regime ,monitoring and symptomatic treatment. Hold discharge today. Supplement potassium, magnesium level pending. Lasix 40 IV push twice a day added to med regime in a patient with CHF per chest x-ray , EF 20-25%. Attempt to Increase RADHA inhibitor up to 5 mg daily. Anticoagulation as per cardiology. Further recommendations to follow The impression and plan of care has been dictated as directed. : I performed a history and examination of this patient, discussed the same with the dictator. I agree with the dictator's note ,documented as a scribe. Any additional findings or plans will be noted.
[2018-03-07] MEDS: FUROSEMIDE 10 MG/ML 4 ML VIAL IV SCH ×2 (12:20→20:28)
[2018-03-07] MEDS: POTASSIUM CHLORIDE ER 20 MEQ TAB.ER PO SCH ×2 (12:20→20:29)
[2018-03-07] MEDS: traMADol 50 MG TAB PO PRN ×2 (14:24→20:28)
[2018-03-07] MEDS: HYDROmorphone 2 MG TAB PO PRN (15:19)
[2018-03-07] MEDS: MAGNESIUM SULFATE-D5W PMX 1 GM in DEXTROSE/WATER 1 100ML.BAG IVPB SCH ×2 (17:16→18:21)
[2018-03-07] MEDS: SENNOSIDES-DOCUSATE SODIUM 1 EACH TAB PO SCH (20:30)
--- NOTE | 2018-03-08 07:54 | PN ---
PROGRESS NOTE Mrs. Hawkins is an 87-year-old female who presented with a fall and fractured hip. She underwent surgery. She had atrial arrhythmia on the monitor, but no evidence of atrial fibrillation. She is sleepy, but awake, confused. She denies any symptoms of chest pain. There is no dizziness. No palpitation. On the monitor, she is in sinus mechanism. Her x-ray yesterday showed mild congestion. She has continued to be on aspirin, Lasix 40 mg IV q.12 hours, lisinopril 5 mg daily, and metoprolol tartrate 25 mg twice a day. PHYSICAL EXAMINATION: Blood pressure 130/70 with the heart rate in the 60s. The patient is lying supine. LUNGS: Clear with mild decrease in breath sounds at bases. HEART: Regular rate and rhythm. S1, S2. No S3. No rub. With a systolic murmur. ABDOMEN: Soft, nontender. EXTREMITIES: No edema. LAB DATA: Lab data from yesterday revealed BUN and creatinine 22 and 0.57. IMPRESSION: 1. Status post hip fracture and surgery. 2. Atrial arrhythmia with no evidence off atrial fibrillation. On the rhythm strip and on the EKG sinus mechanism with PACs. 3. Cardiomyopathy of unclear etiology. 4. Mild congestion with mild congestive heart failure with systolic dysfunction. RECOMMENDATION: From the cardiac standpoint, I will continue on her beta karla and RADHA inhibitor. I will cut down the dose of her Lasix. Patient clinically has no evidence of significant fluid overload at this time. There is no indication for anticoagulation for atrial fibrillation since the patient has no atrial fibrillation. MMODL / IJN: [id number] /
[2018-03-08] MEDS: LEVOTHYROXINE 88 MCG TAB PO SCH (08:32)
[2018-03-08] MEDS: METOPROLOL TARTRATE 25 MG TAB PO SCH (08:32)
[2018-03-08] MEDS: ASPIRIN 325 MG TAB PO SCH (08:32)
[2018-03-08] MEDS: FAMOTIDINE 20 MG TAB PO SCH (08:32)
[2018-03-08] MEDS: POTASSIUM CHLORIDE ER 20 MEQ TAB.ER PO SCH ×2 (08:33→10:25)
[2018-03-08] MEDS: FUROSEMIDE 20 MG TAB PO SCH ×2 (08:33→17:23)
[2018-03-08] MEDS ORDERED: LISINOPRIL 5 MG TAB PO SCH (09:00)
[2018-03-08] MEDS ORDERED: POTASSIUM CHLORIDE ER 20 MEQ TAB.ER PO SCH (09:00)
--- NOTE | 2018-03-08 11:17 | P.PN ---
Subjective Progress Note Date: 03/08/18 Principal diagnosis: Left IT fx Patient is seen at bedside this morning. She is postop day #6 from closed reduction internal fixation with IT nail for left hip fracture. She has pain at the surgical site as expected but denies any new complaints. She denies numbness, tingling or calf pain. Review of systems is negative for fever, chills, chest pain, shortness of breath or other Objective - Vital Signs Vital signs: Vital Signs Temp 97.6 F 03/08/18 08:32 Pulse 80 03/08/18 08:32 Resp 16 03/08/18 08:32 BP 144/77 03/08/18 08:32 Pulse Ox 92 L 03/08/18 08:32 Intake & Output 03/07/18 03/08/18 03/08/18 18:59 06:59 18:59 Output Total 150 Balance -150 Weight 47.627 kg 64.5 kg Output: Urine 150 Other: Voiding Method Diaper Diaper Diaper Incontinent Incontinent # Voids 2 1 # Bowel Movements 0 # Emeses 0 - Exam Inspection reveals a benign surgical wound. There is no active bleeding or drainage. Neurovascular status is intact throughout the lower extremity with motor and sensation fully intact. Calf is soft and nontender. 2+ dorsalis pedis pulse and less than 2 second cap refill is present - Constitutional General appearance: Present: no acute distress - Labs CBC & Chem 7: 03/07/18 06:37 03/08/18 06:25 Labs: Abnormal Lab Results - Last 24 Hours (Table) 03/08/18 Range/Units 06:25 Potassium 3.2 L (3.5-5.1) mmol/L Assessment and Plan (1) Closed left hip fracture Narrative/Plan: She will continue with routine postop orthopedic protocol including pain management, wound care, physical therapy, DVT prophylaxis and medical management. Expect that she will transfer to rehab today Current Visit: Yes Status: Acute Priority: Medium Code(s): S72.002A - FRACTURE OF UNSP PART OF NECK OF LEFT FEMUR, INIT SNOMED Code(s): 265949946 Time with Patient: Less than 30
[2018-03-08] MEDS ORDERED: POTASSIUM CHLORIDE ER 20 MEQ TAB.ER PO STA ×2 (12:05→14:22)
[2018-03-08] MEDS: BISACODYL 5 MG TABLET.DR PO SCH (12:12)
[2018-03-08 15:00] VITALS: BP 116/56; PULSE 64; RESP 18; TEMP 97.9
--- NOTE | 2018-03-08 15:24 | P.PN ---
Subjective Progress Note Date: 03/08/18 Progress note being dictated for Dr. Edouard 87-year-old successfully underwent a left hip arthroplasty. Patient is still having pain and tachycardic secondary to that patient was started on opiates as hit her pain is not well controlled. Patient appears to have tolerated those opiates because of which I didn't make any changes today. Patient is comparing of severe pain in the surgical site areas 03/04/2018 Patient is still complaining of pain. Decreased urine output will closely monitored but will continue with the Toradol because of her continued pain, patient is getting confused occasionally may be related to pain on opiate analgesia. There is no other alternative except to continue this opiate analogies a patient is on Seroquel for agitation episodes. 03/05/2018 Patient has quite a bit confused, Vistaril was discontinued as nursing staff to avoid opiates as well for pain. Patient saturations are low no significant crackles on exam because of her low saturations after the chest x-ray which did show pulmonary edema will give a dose of Lasix obtain echo cardiac exam. Patient is a poor historian, patient is not in respiratory distress 03/06/2018 Patient has on of confusion. I believe her confusion is actually better. Can use to complain on and off pain patient chest x-ray showing pulmonary edema will give her 1 more dose of Lasix patient is tachycardic in atrial fibrillation cardiac he was consulted patient was given a dose of metoprolol. 03/07/2018 received IV push Lasix yesterday ,chest x-ray reporting persistent pulmonary edema, mildly improved. Tachycardia improving, heart rates high 90s to low 100s. Telemetry reporting atrial fibrillation. Echo reporting severely impaired LV function, EF 20-25%, severe global hypokinesis of LV. Potassium 3.3. 03/08/2018 diuresed well on Lasix IV push with 24-hour I&O reflecting a negative fluid balance. Significant clinical improvement. Yesterday telemetry reported proximal A. fib-ruled out by cardiology, currently sinus arrhythmia with PACs, inverted T. Diet intake improving. Pain control improving. Denies chest pain, palpitations or shortness of breath. Maintaining O2 sats of 99% on 2 L nasal cannula. Objective - Vital Signs Vital signs: Vital Signs Temp 97.9 F 03/08/18 14:59 Pulse 64 03/08/18 14:59 Resp 18 03/08/18 14:59 BP 116/56 03/08/18 14:59 Pulse Ox 99 03/08/18 14:59 Intake & Output 03/07/18 03/08/18 03/08/18 18:59 06:59 18:59 Output Total 150 Balance -150 Weight 47.627 kg 64.5 kg Output: Urine 150 Other: Voiding Method Diaper Diaper Diaper Incontinent Incontinent # Voids 2 1 # Bowel Movements 0 # Emeses 0 - Exam GENERAL: The patient is alert and oriented x1-2, not in any acute distress. Thin built cachectic female HEENT: Pupils are round and equally reacting to light. EOMI. No scleral icterus. No conjunctival pallor. Normocephalic, atraumatic. No pharyngeal erythema. No thyromegaly. CARDIOVASCULAR: S1 and S2 present. Positive systolic murmur. PULMONARY: Chest is clear to auscultation, no wheezing or crackles. Bilateral bases diminished ABDOMEN: Soft, nontender, nondistended, normoactive bowel sounds. No palpable organomegaly. MUSCULOSKELETAL: Deferred to orthopedic surgery EXTREMITIES: No cyanosis, clubbing, or pedal edema. NEUROLOGICAL: Gross neurological examination did not reveal any focal deficits. SKIN: No rashes. - Labs CBC & Chem 7: 03/07/18 06:37 03/08/18 13:42 Labs: Abnormal Lab Results - Last 24 Hours (Table) 03/08/18 Range/Units 06:25 Potassium 3.2 L (3.5-5.1) mmol/L Assessment and Plan Assessment: -Status post left hip arthroplasty: DVT prophylaxis per primary service and pain management is being managed by primary service as well. -Pulmonary edema: Acute on chronic CHF, systolic dysfunction, EF 20-25%. Cardiomyopathy of unclear etiology. -Possible New onset Paroximal atrial fibrillation-ruled out per cardiology, currently sinus arrhythmia with PACs. -Hypertension -Hypothyroidism [id number] protein calorie malnutrition -DVT prophylaxis: As per primary service -Hypokalemia Plan: Continue current medication regime ,monitoring and symptomatic treatment. Maintain RADHA inhibitor, beta karla. Diuretics as per cardiology. Wean off oxygen as patient satting 99% on 2 L nasal cannula. Significant clinical improvement. Medically cleared for discharge to subacute rehab. Close monitoring of electrolytes, renal function with repeat CBC BMP Magnesium in 2 days outpatient. The impression and plan of care has been dictated as directed. : I performed a history and examination of this patient, discussed the same with the dictator. I agree with the dictator's note ,documented as a scribe. Any additional findings or plans will be noted.
== END 2018-03-08 18:59 | DRG 480 ==
LOC: EC 08:12 → 3SUR 11:09
PROVIDERS: ADMIT Orthopaedic Surgery; ATTEND Orthopaedic Surgery
PROC: 0QS736Z Reposition Left Upper Femur with Intramedullary Internal Fixation Device, Percutaneous Approach (ICD-10-PCS; principal; 2018-03-02 10:45)
DX: S72.142A Displaced intertrochanteric fracture of left femur, initial encounter for closed fracture (principal); I50.23 Acute on chronic systolic (congestive) heart failure; E44.0 Moderate protein-calorie malnutrition; I42.9 Cardiomyopathy, unspecified; Z68.1 Body mass index [BMI] 19.9 or less, adult; E03.9 Hypothyroidism, unspecified; E87.6 Hypokalemia; F03.90 Unspecified dementia, unspecified severity, without behavioral disturbance, psychotic disturbance, mood disturbance, and anxiety; F41.9 Anxiety disorder, unspecified; I11.0 Hypertensive heart disease with heart failure; I49.1 Atrial premature depolarization; I49.3 Ventricular premature depolarization; K59.09 Other constipation; R45.1 Restlessness and agitation; R32 Unspecified urinary incontinence; M15.9 Polyosteoarthritis, unspecified; H54.3 Unqualified visual loss, both eyes; Z98.42 Cataract extraction status, left eye; Z98.41 Cataract extraction status, right eye; Z96.1 Presence of intraocular lens; Z87.891 Personal history of nicotine dependence; Z87.81 Personal history of (healed) traumatic fracture; Z79.890 Hormone replacement therapy; Z79.899 Other long term (current) drug therapy; Z88.0 Allergy status to penicillin; Z88.2 Allergy status to sulfonamides; Z87.440 Personal history of urinary (tract) infections; Z91.81 History of falling; Z82.49 Family history of ischemic heart disease and other diseases of the circulatory system; Z80.9 Family history of malignant neoplasm, unspecified; W18.30XA Fall on same level, unspecified, initial encounter
CPT/HCPCS: 70450; 71045; 72125; 73501; 73502; 80048; 80053; 81001; 83735; 84132; 84443; 85025; 85027; 85610; 85730; 93005; 93306; 94760; 96374; 96375; 99285